=== PATIENT | female | born 1995 | race Caucasian/White ===

== ENCOUNTER 2017-03-24 16:27 | Emergency (ER) | payer MEDICAID ==
[2017-03-24 17:48] LABS: HCG UR QUAL NEGATIVE
--- NOTE | 2017-03-24 18:52 | XRAY Preliminary Report ---
Exam: XR Ribs w/PA Chest LT IMPRESSION: Normal chest and rib radiography. [facility] SITE ID: [id number]
--- NOTE | 2017-03-24 18:54 | XRAY Report ---
EXAM: LEFT RIB RADIOGRAPHY EXAM DATE: 03/24/2017 06:42 PM. CLINICAL HISTORY: LEFT RIB PAIN. COMPARISON: Chest dated 08/26/2014. TECHNIQUE: 1 view of the chest and 2 views of the ribs. FINDINGS: Bones: Normal. No fracture or bone lesion. Lungs: Clear. No effusion or pneumothorax. Mediastinum: Heart and mediastinal contours are unremarkable. Upper lobe vessels not distended. Other: None. IMPRESSION: Normal chest and rib radiography. [facility] Referring Provider Line: [phone] SITE ID: [id number]
--- NOTE | 2017-03-24 20:14 | ED Physician Documentation ---
History of Present Illness - Stated complaint Stated Complaint: HEAD/BACK PX - Chief complaint Chief Complaint: Back Pain - Additonal information Additional information: hx from pt 22 y/o f denies preg fell opff trampoline last night and landed flat on her back hitting her head no LOC severe [place] back and frontal all day with dizziness and NV, no neck pain left posterior rib pain Review of Systems Constitutional: denies: Fever, Chills Cardiac: reports: Chest pain / pressure (left ribs) Respiratory: denies: Dyspnea GI: denies: Abdominal Pain (near ribs) : denies: Now EGA Musculoskeletal: reports: Back pain (left ribs). denies: Neck pain Neurologic: reports: Headache, Head injury. 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 - Present Medications Home Medications: Ambulatory Orders Medication Instructions Recorded Confirmed Etonogestrel [Nexplanon] 68 mg 07/28/15 09/06/15 Ibuprofen [Motrin] 800 mg PO Q8H PRN #30 tablet 04/19/16 Lidocaine Patch 5% [Lidoderm Patch] 1 each TOP DAILY PRN #10 patch 03/24/17 Ondansetron Odt [Zofran] 4 mg TL Q6H PRN #10 tablet 03/24/17 - Allergies Allergies/Adverse Reactions: Allergies Allergy/AdvReac Type Severity Reaction Status Date / Time antinausea AdvReac Intermediate Hives Uncoded 03/24/17 16:34 - Social History Does the pt smoke?: Yes Smoking Status: Current every day smoker Does the pt drink ETOH?: Yes Does the pt have substance abuse?: No - Immunizations Immunizations are current?: Yes - POLST Patient has POLST: No PD ED PE NORMAL - Vitals Vital signs reviewed: Yes - General General: Alert and oriented X 3 - HEENT HEENT: Atraumatic, PERRL - Neck Neck: No bony TTP - Cardiac Cardiac: RRR - Respiratory Respiratory: No respiratory distress, Clear bilaterally - Abdomen Abdomen: Soft, Other (mild LUQ TTP s distension bruising rebound guarding) - Neuro Neuro: Alert and oriented X 3, No motor deficit, No sensory deficit Results - Vitals Vitals: Vital Signs - 24 hr 03/24/17 03/24/17 16:31 21:05 Temperature 36.7 C 36.9 C Heart Rate 86 70 Respiratory 16 16 Rate Blood Pressure 141/92 H 119/58 L O2 Saturation 99 100 Oxygen O2 Source Room air - Labs Labs: Laboratory Tests 03/24/17 17:35 Ur Specific [place] 1.015 Urine HCG, Qual NEGATIVE - Rads (name of study) ribs Radiology: See rad report (neg) CTH Radiology: See rad report (no ICH no skull fx, sinus inflammation) Departure - Departure Disposition: 01 Home, Self Care Clinical Impression: Concussion Qualifiers: Encounter type: initial encounter Loss of consciousness presence/duration: without LOC Qualified Code(s): S06.0X0A - Concussion without loss of consciousness, initial encounter Contusion of rib on left side Qualifiers: Encounter type: initial encounter Qualified Code(s): S20.212A - Contusion of left front wall of thorax, initial encounter Condition: Good Instructions: ED Contusion Chest Wall, ED Concussion Prescriptions: Lidocaine Patch 5% [Lidoderm Patch] 1 each TOP DAILY PRN #10 patch PRN Reason: Pain Ondansetron Odt [Zofran] 4 mg TL Q6H PRN #10 tablet PRN Reason: Nausea / Vomiting Comments: The xrays of your ribs and the CT scan of your head were both fine, no fractures and no bleeding on the brain Recommend lidocaine patches - apply one to your ribs every day for up to 12 hr a day, and motrin and tylenol for the pain And zofran for vomiting Avoid any contact sports or other activities where you might hit your head until you are feeling better and have no headaches or nausea any more Follow up with your OPMD if not better in a week Return if worse Forms: Activity restrictions
[2017-03-24] MEDS ORDERED: ONDANSETRON ODT 4 MG TABLET ONE (20:21)
[2017-03-24] MEDS ORDERED: IBUPROFEN 400 MG TABLET PO ONE ×2 (20:21→21:49)
[2017-03-24] MEDS ORDERED: ACETAMINOPHEN 325 MG TABLET PO ONE (20:21)
[2017-03-24] MEDS: ONDANSETRON ODT 4 MG TABLET TL STA (20:22)
[2017-03-24] MEDS: LIDOCAINE PATCH 5% TOP STA (20:22)
[2017-03-24] MEDS ORDERED: LIDOCAINE PATCH 5% TOP ONE (20:22)
[2017-03-24] MEDS: ACETAMINOPHEN 325 MG TABLET PO STA (20:22)
[2017-03-24] MEDS: IBUPROFEN 400 MG TABLET PO STA ×2 (20:22→21:47)
[2017-03-24 21:06] VITALS: BP 119/58
--- NOTE | 2017-03-24 21:18 | CT Preliminary Report ---
Exam: CT Head W/O IMPRESSION: 1. Moderate right maxillary mucosal thickening consistent with sinusitis versus mucosal hemorrhage. 2. No intracranial abnormality nor bleed. [facility] SITE ID: [id number]
--- NOTE | 2017-03-24 21:23 | CT Report ---
EXAM: CT HEAD EXAM DATE: 03/24/2017 08:39 PM. CLINICAL HISTORY: Patient fell off a trampoline 22 hours ago. Patient presents with dizziness, nosebl eed this morning, and vomiting. COMPARISON: None. TECHNIQUE: Multiaxial CT images were obtained from the foramen magnum to the vertex. IV contrast: Non e. Reformats: Coronal. In accordance with CT protocol optimization, one or more of the following dose reduction techniques w ere utilized for this exam: automated exposure control, adjustment of mA and/or KV based on patient s ize, or use of iterative reconstructive technique. FINDINGS: Parenchyma: No intraparenchymal hemorrhage. No evidence of mass, midline shift, or CT findings of inf arction. [place] differentiation is distinct. Extraaxial Spaces: Normal for age. No subdural or epidural collections identified. Ventricles: Normal in size and position. Sinuses: Moderate mucosal thickening right maxillary sinus. Opacification of several anterior ethmoid air cells bilaterally. Mild mucosal thickening right sphenoid sinus. Middle ears and mastoid air maile ls are clear. Bones: No evidence of fracture or calvarial defect. Other: None. IMPRESSION: 1. Moderate right maxillary mucosal thickening consistent with sinusitis versus mucosal hemorrhage. 2. No intracranial abnormality nor bleed. [facility] Referring Provider Line: [phone] SITE ID: [id number]
[2017-03-24] MEDS ORDERED: ONDANSETRON ODT 4 MG Prepack 2 TL ONE (21:57)
[2017-03-24] MEDS: ONDANSETRON ODT 4 MG Prepack 2 TL PRN (21:59)
== END 2017-03-24 21:59 | disposition home or self-care (01) ==
LOC: ED 16:27
DX: S06.0X0A Concussion without loss of consciousness, initial encounter (principal); S20.212A Contusion of left front wall of thorax, initial encounter; W17.89XA Other fall from one level to another, initial encounter; Y93.44 Activity, trampolining; F17.200 Nicotine dependence, unspecified, uncomplicated
CPT/HCPCS: 70450; 71101; 81025; 99283; A9270; Q0162

== ENCOUNTER 2017-11-10 18:24 | Emergency (ER) | payer MEDICAID ==
[2017-11-10 18:41] LABS: BILIRUBIN,URINE NEGATIVE (NEGATIVE); GLUCOSE, URINE (UA) NEGATIVE (NEGATIVE); KETONES,URINE (UA) NEGATIVE (NEGATIVE); LEUKOCYTE ESTERASE, URINE NEGATIVE (NEGATIVE); NITRITE,URINE NEGATIVE (NEGATIVE); OCCULT BLOOD,URINE NEGATIVE (NEGATIVE); PROTEIN,URINE NEGATIVE (NEGATIVE); UROBILINOGEN,URINE 0.2 (NORMAL) E.U./dL (NORMAL)
[2017-11-10 18:44] LABS: CLARITY,URINE CLEAR (CLEAR)
--- NOTE | 2017-11-10 20:18 | ED Physician Documentation ---
PD HPI ABD PAIN - Stated complaint Stated Complaint: LOW ABD/BACK PAIN - Chief complaint Chief Complaint: Abd Pain - History obtained from History obtained from: Patient - History of Present Illness Timing - onset: How many hours ago (3), Today Timing - duration: Hours Timing - details: Abrupt onset, Still present Quality: Cramping, Aching, Pain Location: Suprapubic, LLQ Radiation: Lower back Associated symptoms: Nausea. No: Fever, Vomiting, Diarrhea, Dysuria, Vaginal dc Similar symptoms before: Has not had sx before Recently seen: Not recently seen Review of Systems Constitutional: denies: Fever, Chills : reports: Irregular menses. denies: Dysuria, Frequency, Discharge, Missed period Musculoskeletal: reports: Back pain. 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 - Present Medications Home Medications: Ambulatory Orders Medication Instructions Recorded Confirmed Naproxen 375 mg PO BID #20 tablet 11/10/17 Oxycodone HCl/Acetaminophen 1 each PO Q6H PRN #10 tablet 11/10/17 [Percocet 5-325 mg Tablet] - Allergies Allergies/Adverse Reactions: Allergies Allergy/AdvReac Type Severity Reaction Status Date / Time antinausea AdvReac Intermediate Hives Uncoded 11/10/17 18:29 - Social History Does the pt smoke?: Yes Smoking Status: Current every day smoker Does the pt drink ETOH?: Yes Does the pt have substance abuse?: No - Immunizations Immunizations are current?: Yes - POLST Patient has POLST: No PD ED PE NORMAL - Vitals Vital signs reviewed: Yes - General General: Alert and oriented X 3, No acute distress, Well developed/nourished - HEENT HEENT: Moist mucous membranes, Pharynx benign - Neck Neck: Supple, no meningeal sign, No adenopathy - Cardiac Cardiac: RRR, No murmur - Respiratory Respiratory: Clear bilaterally - Abdomen Abdomen: Normal bowel sounds, Soft, Non distended, No organomegaly, Other ( tender suprapubic and LLQ area without guarding nor percussion tenderness. ) - Back Back: No CVA TTP - Derm Derm: Normal color, Warm and dry - Extremities Extremities: No tenderness to palpate, Normal ROM s pain - Neuro Neuro: Alert and oriented X 3, No motor deficit, Normal speech Results - Vitals Vitals: Oxygen O2 Source Room air - Labs Labs: Laboratory Tests 11/10/17 11/10/17 11/10/17 18:32 18:32 20:43 WBC 7.6 RBC 4.17 L Hgb 13.0 Hct 38.8 MCV 93.1 MCH 31.3 H MCHC 33.6 RDW 12.8 Plt Count 236 MPV 8.5 Neut # 4.9 Lymph # 2.0 [place] # 0.5 Eos # 0.1 Baso # 0.1 Absolute Nucleated RBC 0.00 Nucleated RBC % 0.0 Sodium Potassium Chloride Carbon Dioxide Anion Gap BUN Creatinine Estimated GFR (MDRD) Glucose Calcium Total Bilirubin AST ALT Alkaline Phosphatase Total Protein Albumin Globulin Albumin/Globulin Ratio Lipase Urine Color YELLOW Urine Clarity CLEAR Urine pH 6.0 Ur Specific [place] 1.020 1.020 Urine Protein NEGATIVE Urine Glucose (UA) NEGATIVE Urine Ketones NEGATIVE Urine Occult Blood NEGATIVE Urine Nitrite NEGATIVE Urine Bilirubin NEGATIVE Urine Urobilinogen 0.2 (NORMAL) Ur Leukocyte Esterase NEGATIVE Ur Microscopic Review NOT INDICATED Urine Culture Comments NOT INDICATED Urine HCG, Qual NEGATIVE 11/10/17 20:43 WBC RBC Hgb Hct MCV MCH MCHC RDW Plt Count MPV Neut # Lymph # [place] # Eos # Baso # Absolute Nucleated RBC Nucleated RBC % Sodium 137 Potassium 3.7 Chloride 104 Carbon Dioxide 23 Anion Gap 10.0 BUN 7 Creatinine 0.5 Estimated GFR (MDRD) 152 Glucose 95 Calcium 9.3 Total Bilirubin 0.6 AST 16 ALT 15 Alkaline Phosphatase 56 Total Protein 7.3 Albumin 4.6 Globulin 2.7 Albumin/Globulin Ratio 1.7 Lipase 14 L Urine Color Urine Clarity Urine pH Ur Specific [place] Urine Protein Urine Glucose (UA) Urine Ketones Urine Occult Blood Urine Nitrite Urine Bilirubin Urine Urobilinogen Ur Leukocyte Esterase Ur Microscopic Review Urine Culture Comments Urine HCG, Qual - Rads (name of study) Pelvic U/S Radiology: Prelim report reviewed (normal.) PD MEDICAL DECISION MAKING - ED course Complexity details: reviewed results, considered differential (not tender RLQ, with more pelvic and back pain. Denies STD symptoms. U/S normal. UA negative. Presume uterine cramping. No blood in urine. ), d/w patient Departure - Departure Disposition: 01 Home, Self Care Clinical Impression: Abdominal pain Qualifiers: Abdominal location: lower abdomen, unspecified Qualified Code(s): R10.30 - Lower abdominal pain, unspecified Condition: Stable Record reviewed to determine appropriate education?: Yes Instructions: ED Abdominal Pain Unkn Cause Prescriptions: Naproxen 375 mg PO BID #20 tablet Oxycodone HCl/Acetaminophen [Percocet 5-325 mg Tablet] 1 each PO Q6H PRN #10 tablet PRN Reason: Pain Comments: Your test here which included a urine test blood tests and ultrasound do not show an obvious cause for the pain. There may been a cyst that ruptured and would not have a residual finding. Acute events of intestinal pain. At this point we would give it a day or so to see if it continues to improve and go away. Use some naproxen or ibuprofen twice daily for the next several days. Add Tylenol or oxycodone if needed for pain. Follow-up with your primary care or back here if he has worsened pain again or any associated vomiting, fever, bloody stool, other symptoms that would suggest a different diagnosis. Discharge Date/Time: 11/10/17 23:02
[2017-11-10] MEDS ORDERED: KETOROLAC 60 MG/2 ML VIAL IVP STA (20:36)
[2017-11-10] MEDS ORDERED: ONDANSETRON 4 MG/2 ML VIAL IVP STA (20:36)
[2017-11-10] MEDS ORDERED: SODIUM CHLORIDE 0.9% 1,000 ML IV ONE (20:36)
[2017-11-10] MEDS ORDERED: HYDROmorphone 1 MG/ML CARPUJECT IVP STA ×2 (20:36→22:23)
[2017-11-10 20:48] LABS: BASOPHILS # (AUTO) 0.1 10^3/uL (0.0-0.1); BASOPHILS % (AUTO) 0.9 %; EOSINOPHILS # (AUTO) 0.1 10^3/uL (0.0-0.7); EOSINOPHILS % (AUTO) 1.4 %; LYMPHOCYTES % (AUTO) 26.5 %; MEAN CORPUSCULAR HEMOGLOBIN 31.3 pg (27.0-31.0); MEAN CORPUSCULAR HGB CONC 33.6 g/dL (32.0-36.0); MEAN CORPUSCULAR VOLUME 93.1 fL (81.0-99.0); MEAN PLATELET VOLUME 8.5 fL (7.9-10.8); MONOCYTES # (AUTO) 0.5 10^3/uL (0.0-1.0); MONOCYTES % (AUTO) 7.2 %; NEUTROPHILS # (AUTO) 4.9 10^3/uL (1.5-6.6); PLT - PLATELET COUNT 236 10^3/uL (130-450); RED BLOOD COUNT 4.17 10^6/uL (4.20-5.40); RED CELL DISTRIBUTION WIDTH 12.8 % (12.0-15.0); WHITE BLOOD COUNT 7.6 x10^3/uL (4.8-10.8)
[2017-11-10 20:59] LABS: ALBUMIN 4.6 g/dL (3.2-5.5); ALBUMIN/GLOBULIN RATIO 1.7 (1.0-2.2); BILIRUBIN,TOTAL 0.6 mg/dL (0.2-1.0); CALCIUM 9.3 mg/dL (8.5-10.3); CREATININE 0.5 mg/dL (0.4-1.0); TOTAL PROTEIN 7.3 g/dL (6.7-8.2)
[2017-11-10 21:39] LABS: HCG UR QUAL NEGATIVE
--- NOTE | 2017-11-10 22:02 | Ultrasound Preliminary Report ---
Exam: US PELVIC W/TRANSVAG+DOPPLER LTD IMPRESSION: Normal pelvic ultrasound. [facility] SITE ID: [id number]
[2017-11-10] MEDS ORDERED: oxyCODONE/ACET 5/325 Prepack 4 PO STA (22:23)
[2017-11-10 22:58] VITALS: BP 121/80
--- NOTE | 2017-11-10 23:20 | Ultrasound Report ---
EXAM: PELVIC ULTRASOUND EXAM DATE: 11/10/2017 09:43 PM. CLINICAL HISTORY: Lower abdominal pain for few days. COMPARISON: 06/06/2013. TECHNIQUE: Realtime transabdominal pelvic scan performed to identify the uterus and adnexa and as an overview of other pelvic structures, followed by transvaginal scan to provide greater detail of the u terus and adnexa, with static image documentation. FINDINGS: Uterus: 8.0 x 4.6 x 5.9 cm, volume 112.2 cc. Retroverted and retroflexed position. Normal overall siz e and echotexture. Masses: None. Endometrium: 4 mm. Normal. Cervix: Fluid noted in the cervix. Right Ovary: 3.7 x 2.2 x 2.6 cm, volume 10.9 cc. Normal echotexture and blood flow. Left Ovary: 2.2 x 1.5 x 2.7 cm, volume 4.8 cc. Normal echotexture and blood flow. Free Fluid: Small amount of pelvic fluid. Other: None. IMPRESSION: Normal pelvic ultrasound. [facility] Referring Provider Line: [phone] SITE ID: [id number]
== END 2017-11-10 23:02 | disposition home or self-care (01) ==
LOC: ED 18:24
DX: R10.30 Lower abdominal pain, unspecified (principal); F17.200 Nicotine dependence, unspecified, uncomplicated
CPT/HCPCS: 36415; 76830; 76856; 80053; 81003; 81025; 83690; 85025; 93976; 96361; 96374; 96375; 96376; 99283; 99284; J1170; 81001; 87086

== ENCOUNTER 2018-02-12 12:52 | Emergency (ER) | payer MEDICAID ==
[2018-02-12 13:31] VITALS: BP 133/93
--- NOTE | 2018-02-12 14:41 | ED Physician Documentation ---
PD HPI LOWER EXT INJURY - Stated complaint Stated Complaint: GLF - Chief complaint Chief Complaint: Ext Problem - History obtained from History obtained from: Patient - History of Present Illness PD HPI LOW EXT INJURY LOCATION: Left, Knee (She was packing to camping, she tripped on her suitcase and her knee twisted and complains of anteromedial left knee pain. She is able to walk but has to keep the knee straight. 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 - Present Medications Home Medications: Ambulatory Orders Medication Instructions Recorded Confirmed HYDROcod/ACETAM 5/325 [[place] 5/325] 1 - 2 ea PO Q6H PRN #10 tablet 02/12/18 - Allergies Allergies/Adverse Reactions: Allergies Allergy/AdvReac Type Severity Reaction Status Date / Time antinausea AdvReac Intermediate Hives Uncoded 11/10/17 18:29 - Social History Does the pt smoke?: Yes Smoking Status: Current every day smoker Does the pt drink ETOH?: Yes ETOH Use: Wine, Beer, Liquor Does the pt have substance abuse?: Yes Substance Use and Type: Marijuana - Immunizations Immunizations are current?: Yes - POLST Patient has POLST: No PD ED PE NORMAL - Vitals Vital signs reviewed: Yes - General General: Alert and oriented X 3, No acute distress - Extremities Extremities: Other (Left knee is without effusion, mild anteromedial knee tenderness, especially above the joint line, ACL, PCL, LCL, MCL testing is normal and intact and negative grind testing.) - Neuro Neuro: Alert and oriented X 3, Normal speech - Psych Psych: Normal mood, Normal affect Results - Vitals Vitals: Vital Signs - 24 hr 02/12/18 13:28 Temperature 36.5 C Heart Rate 100 Respiratory 18 Rate Blood Pressure 133/93 H O2 Saturation 100 Oxygen O2 Source Room air - Rads (name of study) 4v R knee Radiology: EMP read contemporaneously (negative) PD MEDICAL DECISION MAKING - Sepsis Event Vital Signs: Vital Signs - 24 hr 02/12/18 13:28 Temperature 36.5 C Heart Rate 100 Respiratory 18 Rate Blood Pressure 133/93 H O2 Saturation 100 Oxygen O2 Source Room air Departure - Departure Disposition: 01 Home, Self Care Clinical Impression: Left knee sprain Qualifiers: Encounter type: initial encounter Involved ligament of knee: medial collateral ligament Qualified Code(s): S83.412A - Sprain of medial collateral ligament of left knee, initial encounter Condition: Good Record reviewed to determine appropriate education?: Yes Instructions: ED Meniscal Injury Knee Poss Follow-Up: [facility] [Provider Group] (1 week if not better) Prescriptions: HYDROcod/ACETAM 5/325 [[place] 5/325] 1 - 2 ea PO Q6H PRN #10 tablet PRN Reason: Pain Comments: Ibuprofen,'s 400 mg every 6 hours as needed for pain. Keep the splint on for comfort but she can take it off around the house or just for showering etc. and you do not need to wear it while sleeping. If not better in a week follow-up with the orthopedic surgeons for recheck, the numbers on this form. Your blood pressure was elevated today on check into the emergency department. This does not mean that you have hypertension, it is a common phenomenon to come to the emergency department and have elevated blood pressure. I recommend that you see your primary care physician within the week to have it rechecked when you are feeling better.
--- NOTE | 2018-02-12 14:42 | XRAY Report ---
Procedure Date: 02/12/2018 Accession Number: [id number] / [id number] Procedure: XR - Knee 4 View LT CPT Code: FULL RESULT: EXAM: LEFT KNEE RADIOGRAPHY EXAM DATE: 02/12/2018 02:32 PM. CLINICAL HISTORY: Fall. COMPARISON: None. TECHNIQUE: 4 views. FINDINGS: Bones: Normal. No fractures or bone lesions. Joints: Normal. No effusion. No subluxations. Soft Tissues: Normal. No soft tissue swelling. IMPRESSION: Negative knee radiography. [facility]
== END 2018-02-12 15:03 | disposition home or self-care (01) ==
LOC: ED 12:52
DX: S83.412A Sprain of medial collateral ligament of left knee, initial encounter (principal); W01.0XXA Fall on same level from slipping, tripping and stumbling without subsequent striking against object, initial encounter; Y93.89 Activity, other specified; F17.200 Nicotine dependence, unspecified, uncomplicated
CPT/HCPCS: 99283

== ENCOUNTER 2018-04-17 14:39 | Emergency (ER) | payer MEDICAID ==
[2018-04-17 14:58] LABS: BILIRUBIN,URINE NEGATIVE (NEGATIVE); GLUCOSE, URINE (UA) NEGATIVE (NEGATIVE); KETONES,URINE (UA) 15 mg/dL (NEGATIVE); LEUKOCYTE ESTERASE, URINE SMALL (NEGATIVE); NITRITE,URINE NEGATIVE (NEGATIVE); OCCULT BLOOD,URINE MODERATE (NEGATIVE); PROTEIN,URINE 100 mg/dL (NEGATIVE); UROBILINOGEN,URINE 2 E.U./dL (NORMAL)
--- NOTE | 2018-04-17 15:02 | ED Physician Documentation ---
PD HPI FEMALE - Stated complaint Stated Complaint: BACK PX/FEM - Chief complaint Chief Complaint: General - History obtained from History obtained from: Patient, Family - History of Present Illness Timing - onset: How many days ago (4) Timing - duration: Days (4) Timing - details: Gradual onset, Still present Associated symptoms: Back pain, Dysuria, Urinary frequency Similar symptoms before: Diagnosis (pyelonephritis) Recently seen: Not recently seen - Additional information Additional information: 23-year-old female who has had prior urinary tract infection with pyelonephritis has developed symptoms of urinary urgency frequency and dysuria about 4 days ago. This morning she awoke with back pain. She recalls his back pain is similar to what she had when she had pyelonephritis 2 years ago. She has some mild nausea she has not had any vomiting she has not had a fever. Review of Systems Constitutional: reports: Fatigue. denies: Fever, Chills Eyes: denies: Decreased vision Ears: denies: Ear pain Nose: denies: Congestion Throat: denies: Sore throat Cardiac: denies: Chest pain / pressure Respiratory: denies: Dyspnea, Cough GI: denies: Abdominal Pain, Nausea, Vomiting, Constipation, Diarrhea : reports: Dysuria, Frequency Skin: denies: Rash Musculoskeletal: reports: Back pain. 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 - Present Medications Home Medications: Ambulatory Orders Medication Instructions Recorded Confirmed HYDROcod/ACETAM 5/325 [[place] 5/325] 1 - 2 ea PO Q6H PRN #15 tablet 04/17/18 Sulfamethoxazole/Trimethoprim 1 each PO BID #14 tablet 04/17/18 [Sulfamethoxazole-Tmp Ds Tablet] - Allergies Allergies/Adverse Reactions: Allergies Allergy/AdvReac Type Severity Reaction Status Date / Time antinausea AdvReac Intermediate Hives Uncoded 04/17/18 15:10 - Social History Does the pt smoke?: Yes Smoking Status: Current every day smoker Does the pt drink ETOH?: Yes Does the pt have substance abuse?: Yes - Immunizations Immunizations are current?: Yes - POLST Patient has POLST: No PD ED PE NORMAL - Vitals Vital signs reviewed: Yes (tachy and hypertensive ) - General General: Alert and oriented X 3, No acute distress, Well developed/nourished - HEENT HEENT: Atraumatic, PERRL, EOMI - Neck Neck: Supple, no meningeal sign - Cardiac Cardiac: RRR, No murmur - Respiratory Respiratory: No respiratory distress, Clear bilaterally - Abdomen Abdomen: Soft, Non tender - Back Back: No spinal TTP, Other (There is CVA tenderness bilaterallly ) - Derm Derm: Normal color, Warm and dry, No rash - Extremities Extremities: No deformity, No edema - Neuro Neuro: Alert and oriented X 3, chief science officer 2-12 intact, No motor deficit, No sensory deficit, Normal speech Eye Opening: Spontaneous Motor: Obeys Commands Verbal: Oriented GCS Score: 15 - Psych Psych: Normal mood, Normal affect Results - Vitals Vitals: Vital Signs - 24 hr 04/17/18 14:45 Temperature 37.2 C Heart Rate 103 H Respiratory 16 Rate Blood Pressure 142/90 H O2 Saturation 99 Oxygen O2 Source Room air - Labs Labs: Laboratory Tests 04/17/18 14:50 Urine Color YELLOW Urine Clarity CLOUDY Urine pH 7.0 Ur Specific [place] 1.020 Urine Protein 100 H Urine Glucose (UA) NEGATIVE Urine Ketones 15 H Urine Occult Blood MODERATE H Urine Nitrite NEGATIVE Urine Bilirubin NEGATIVE Urine Urobilinogen 2 H Ur Leukocyte Esterase SMALL H Urine RBC 11-25 H Urine WBC 11-25 H Ur Squamous Epith Cells RARE Squamous Urine Bacteria None Seen Ur Microscopic Review INDICATED Urine Culture Comments INDICATED Urine HCG, Qual NEGATIVE PD MEDICAL DECISION MAKING - ED course Complexity details: reviewed old records, reviewed results, re-evaluated patient , considered differential, d/w patient, d/w family ED course: 23-year-old female with urinary tract symptoms has developed pain in her back again and her previous infection grew an E. coli that was sensitive. She had no specific issues with her prior treatment and we will repeat this. She is given Rocephin IM here in the emergency department we will give her a note for work for [address] her on . - Sepsis Event Vital Signs: Vital Signs - 24 hr 04/17/18 14:45 Temperature 37.2 C Heart Rate 103 H Respiratory 16 Rate Blood Pressure 142/90 H O2 Saturation 99 Oxygen O2 Source Room air Departure - Departure Disposition: 01 Home, Self Care Clinical Impression: Pyelonephritis Condition: Stable Instructions: ED Kidney Infec Female Follow-Up: [facility] [Provider Group] Prescriptions: HYDROcod/ACETAM 5/325 [[place] 5/325] 1 - 2 ea PO Q6H PRN #15 tablet PRN Reason: Pain Sulfamethoxazole/Trimethoprim [Sulfamethoxazole-Tmp Ds Tablet] 1 each PO BID # 14 tablet Forms: Activity restrictions
[2018-04-17 15:07] LABS: BACTERIA,URINE None Seen /HPF (None Seen); CLARITY,URINE CLOUDY (CLEAR); HCG UR QUAL NEGATIVE; SQUAMOUS EPITHELIAL CELL,UR RARE Squamous (<= Few)
[2018-04-17] MEDS ORDERED: cefTRIAXone 1 GM VIAL IM STA (15:10)
[2018-04-17] MEDS ORDERED: LIDOCAINE 1% 2 ML VIAL SUBQ ONE (15:10)
[2018-04-17 15:34] VITALS: BP 132/73
== END 2018-04-17 15:34 | disposition home or self-care (01) ==
LOC: ED 14:39
DX: F17.200 Nicotine dependence, unspecified, uncomplicated (principal); N12 Tubulo-interstitial nephritis, not specified as acute or chronic
CPT/HCPCS: 81001; 81003; 81025; 87086; 87181; 96372; 99283

== ENCOUNTER 2019-02-13 12:31 | Emergency (ER) | payer MEDICAID ==
[2019-02-13 12:37] VITALS: BP 134/92
[2019-02-13 12:47] LABS: BILIRUBIN,URINE NEGATIVE (NEGATIVE); GLUCOSE, URINE (UA) NEGATIVE (NEGATIVE); KETONES,URINE (UA) TRACE mg/dL (NEGATIVE); LEUKOCYTE ESTERASE, URINE MODERATE (NEGATIVE); NITRITE,URINE NEGATIVE (NEGATIVE); OCCULT BLOOD,URINE MODERATE (NEGATIVE); PH,URINE 6.5 PH (5.0-7.5); PROTEIN,URINE 30 mg/dL (NEGATIVE); UROBILINOGEN,URINE 1 (NORMAL) E.U./dL (NORMAL)
[2019-02-13 12:50] LABS: CLARITY,URINE CLOUDY (CLEAR); HCG UR QUAL NEGATIVE
[2019-02-13 12:58] LABS: BACTERIA,URINE Few /HPF (None Seen); SQUAMOUS EPITHELIAL CELL,UR FEW Squamous (<= Few)
[2019-02-13 12:59] LABS: MUCUS,URINE Few Strands
--- NOTE | 2019-02-13 13:04 | ED Physician Documentation ---
PD HPI FEMALE - Stated complaint Stated Complaint: FEMALE - Chief complaint Chief Complaint: UTI - History obtained from History obtained from: Patient - History of Present Illness Timing - onset: Yesterday (Frequency and dysuria today with mild L back pain. No fevers.) Review of Systems Constitutional: denies: Fever, Chills GI: reports: Abdominal Pain. 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 - Present Medications Home Medications: Ambulatory Orders Medication Instructions Recorded Confirmed Hydrocodone/Acetaminophen 1 - 2 each PO Q6H PRN #7 tablet 02/13/19 [Hydrocodon-Acetaminophen 5-325] Ibuprofen 600 mg PO ONCE 02/13/19 02/13/19 Sulfamethoxazole/Trimethoprim 1 each PO BID #14 tablet 02/13/19 [Sulfamethoxazole-Tmp Ds Tablet] - Allergies Allergies/Adverse Reactions: Allergies Allergy/AdvReac Type Severity Reaction Status Date / Time antinausea AdvReac Intermediate Hives Uncoded 02/13/19 12:37 - Social History Does the pt smoke?: Yes Smoking Status: Current every day smoker Does the pt drink ETOH?: Yes Does the pt have substance abuse?: Yes - Immunizations Immunizations are current?: Yes - POLST Patient has POLST: No PD ED PE NORMAL - Vitals Vital signs reviewed: Yes - General General: Alert and oriented X 3, No acute distress - Abdomen Abdomen: Soft, Other (Mild LLQ and LCVAT ) - Neuro Neuro: Alert and oriented X 3, Normal speech - Psych Psych: Normal mood, Normal affect Results - Vitals Vitals: Vital Signs - 24 hr 02/13/19 12:35 Temperature 36.8 C Heart Rate 108 H Respiratory 18 Rate Blood Pressure 134/92 H O2 Saturation 100 Oxygen O2 Source Room air - Labs Labs: Laboratory Tests 02/13/19 12:39 Urine Color YELLOW Urine Clarity CLOUDY Urine pH 6.5 Ur Specific [place] 1.020 Urine Protein 30 H Urine Glucose (UA) NEGATIVE Urine Ketones TRACE Urine Occult Blood MODERATE H Urine Nitrite NEGATIVE Urine Bilirubin NEGATIVE Urine Urobilinogen 1 (NORMAL) Ur Leukocyte Esterase MODERATE H Urine RBC 6-10 H Urine WBC >25 H Ur Squamous Epith Cells FEW Squamous Urine Bacteria Few Urine Mucus Few Strands Ur Microscopic Review INDICATED Urine Culture Comments INDICATED Urine HCG, Qual NEGATIVE Departure - Departure Disposition: Home, Self Care Clinical Impression: Pyelonephritis Condition: Good Record reviewed to determine appropriate education?: Yes Health Concerns: uti/pyelonephritis Plan of Treatment: antibiotics, urine culture Care Goals: rid infection Assessment: as above Instructions: Pyelonephritis Dc Prescriptions: Hydrocodone/Acetaminophen [Hydrocodon-Acetaminophen 5-325] 1 - 2 each PO Q6H PRN #7 tablet PRN Reason: pain Sulfamethoxazole/Trimethoprim [Sulfamethoxazole-Tmp Ds Tablet] 1 each PO BID #14 tablet Comments: We will culture your urine, the results should be done in 48-72 hours. If an antibiotic change is necessary we will call you. Return if worse in the meantime, especially if you develop increasing flank pain, fevers, or cannot keep down the medication.
[2019-02-13] MEDS ORDERED: SULFAMETH/TRIMETH DS 800/160 MG TABLET PO STA (13:06)
== END 2019-02-13 13:14 | disposition home or self-care (01) ==
LOC: ED 12:31
DX: N12 Tubulo-interstitial nephritis, not specified as acute or chronic (principal); F17.200 Nicotine dependence, unspecified, uncomplicated
CPT/HCPCS: 81001; 81025; 87086; 99283; A9270; 81003

== ENCOUNTER 2019-08-28 00:48 | Emergency (ER) | payer MEDICAID ==
--- NOTE | 2019-08-28 01:36 | ED Physician Documentation ---
PD HPI LOWER EXT INJURY - Stated complaint Stated Complaint: GLF - LT KNEE PAIN - Chief complaint Chief Complaint: Trauma Ext - History obtained from History obtained from: Patient - History of Present Illness PD HPI LOW EXT INJURY LOCATION: Left Type of injury: Twist, Blunt / blow Where injury occurred: Home Timing - onset: Enter time (22:00) Timing - details: Abrupt onset Pain level max: 5 Pain level now: 2 Improved by: Rest Worsened by: Moving, Palpating Associated symptoms: Swelling. No: Weakness, Numbness, Tingling, Discolored Recently seen: Not recently seen - Additional information Additional information: At approximately 10 PM tonight, patient was roughhousing with a friend, and patients left knee twisted and then patient fell to the floor, and the left knee struck the ground. Patient had sudden onset of left knee pain. She can bare minimal weight on the left lower extremity. 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 - Present Medications Home Medications: Ambulatory Orders Medication Instructions Recorded Confirmed Hydrocodone/Acetaminophen 1 - 2 each PO Q6H PRN #7 tablet 02/13/19 [Hydrocodon-Acetaminophen 5-325] Ibuprofen 600 mg PO ONCE 02/13/19 02/13/19 Sulfamethoxazole/Trimethoprim 1 each PO BID #14 tablet 02/13/19 [Sulfamethoxazole-Tmp Ds Tablet] HYDROcod/ACETAM 5/325 [[place] 5/325] 1 - 2 ea PO Q6H PRN #20 tablet 08/28/19 Ibuprofen [Ibu] 600 mg PO Q6HR PRN #20 tablet 08/28/19 - Allergies Allergies/Adverse Reactions: Allergies Allergy/AdvReac Type Severity Reaction Status Date / Time antinausea AdvReac Intermediate Hives Uncoded 08/28/19 00:55 - Social History Does the pt smoke?: Yes Smoking Status: Current every day smoker Does the pt drink ETOH?: Yes Does the pt have substance abuse?: Yes - Immunizations Immunizations are current?: Yes - POLST Patient has POLST: No PD ED PE NORMAL - Vitals Vital signs reviewed: Yes - General General: Alert and oriented X 3, No acute distress, Well developed/nourished - Derm Derm: Normal color, Warm and dry - Extremities Extremities: No deformity - Neuro Neuro: No motor deficit, No sensory deficit PD ED PE EXPANDED - Extremities Extremities: Tenderness, Limited ROM, Swelling, Left knee Results - Vitals Vitals: Oxygen O2 Source Room air - Rads (name of study) left knee xrays Radiology: Prelim report reviewed, See rad report PD MEDICAL DECISION MAKING - ED course Complexity details: reviewed results, re-evaluated patient, considered differential, d/w patient Departure - Departure Disposition: 01 Home, Self Care Clinical Impression: Patella fracture Qualifiers: Encounter type: initial encounter Fracture type: closed Fracture morphology: unspecified fracture morphology Fracture alignment: nondisplaced Laterality: left Qualified Code(s): S82.002A - Unspecified fracture of left patella, initial encounter for closed fracture Condition: Good Instructions: ED Crutch Walking, ED Immobilizer Knee, ED Fx Patella Follow-Up: Lucas Alexis MD [Provider Admit Priv/Credential] - Within 1 week Prescriptions: Ibuprofen [Ibu] 600 mg PO Q6HR PRN #20 tablet PRN Reason: Pain HYDROcod/ACETAM 5/325 [[place] 5/325] 1 - 2 ea PO Q6H PRN #20 tablet PRN Reason: Pain Forms: Activity restrictions Discharge Date/Time: 08/28/19 02:44
--- NOTE | 2019-08-28 01:51 | XRAY Report ---
Reason: GLF/L knee injury Procedure Date: 08/28/2019 Accession Number: [id number] / [id number] Procedure: XR - Knee 3 View LT CPT Code: Final Report FULL RESULT: EXAM: LEFT KNEE RADIOGRAPHY EXAM DATE: 08/28/2019 01:44 AM. CLINICAL HISTORY: GLF/L knee injury. COMPARISON: KNEE 4 VIEW LT 02/12/2018 2:18 PM. TECHNIQUE: 3 views. FINDINGS: Bones: Small fracture at the superior medial aspect of the patella. Joints: No dislocation seen. Joint spaces appear preserved. Minimal if any joint effusion. Soft Tissues: Soft tissue swelling. IMPRESSION: 1. Small fracture at the superior medial aspect of the patella. RADIA
[2019-08-28] MEDS ORDERED: IBUPROFEN 600 MG TABLET PO STA (02:30)
[2019-08-28 02:44] VITALS: BP 144/98
== END 2019-08-28 02:44 | disposition home or self-care (01) ==
LOC: ED 00:48
DX: S82.002A Unspecified fracture of left patella, initial encounter for closed fracture (principal); W18.39XA Other fall on same level, initial encounter; Y93.83 Activity, rough housing and horseplay; Y92.009 Unspecified place in unspecified non-institutional (private) residence as the place of occurrence of the external cause; F17.200 Nicotine dependence, unspecified, uncomplicated
CPT/HCPCS: 73562; 99283; A9270

== ENCOUNTER 2019-11-01 07:00 | Outpatient (CLI) | payer MEDICAID | END 2019-11-01 23:59 | disposition home or self-care (01) | LOC: LAB.R 07:00 | PROVIDERS: ATTEND Nurse Practitioner Family | DX: R30.0 Dysuria (principal) | CPT/HCPCS: 87086 ==

== ENCOUNTER 2020-02-04 07:53 | Emergency (ER) | payer MEDICAID ==
[2020-02-04 08:13] VITALS: BP 130/97
[2020-02-04] MEDS ORDERED: HYDROcod/ACETAM 5/325 MG TABLET PO STA (08:16)
--- NOTE | 2020-02-04 08:17 | ED Physician Documentation ---
PD HPI LOWER EXT INJURY - Stated complaint Stated Complaint: LEFT KNEE PAIN - Chief complaint Chief Complaint: Ext Problem - History obtained from History obtained from: Patient - History of Present Illness PD HPI LOW EXT INJURY LOCATION: Left (Before months ago she had a little chip fracture of her left patella. She was wearing a brace and was in physical therapy. 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 - Present Medications Home Medications: Ambulatory Orders Medication Instructions Recorded Confirmed Hydrocodone/Acetaminophen 1 - 2 each PO Q6H PRN #7 tablet 02/13/19 [Hydrocodon-Acetaminophen 5-325] Ibuprofen 600 mg PO ONCE 02/13/19 02/13/19 Sulfamethoxazole/Trimethoprim 1 each PO BID #14 tablet 02/13/19 [Sulfamethoxazole-Tmp Ds Tablet] HYDROcod/ACETAM 5/325 [[place] 5/325] 1 - 2 ea PO Q6H PRN #20 tablet 08/28/19 Ibuprofen [Ibu] 600 mg PO Q6HR PRN #20 tablet 08/28/19 Hydrocodone/Acetaminophen 1 - 2 each PO Q6H PRN #14 tablet 02/04/20 [Hydrocodon-Acetaminophen 5-325] - Allergies Allergies/Adverse Reactions: Allergies Allergy/AdvReac Type Severity Reaction Status Date / Time antinausea AdvReac Intermediate Hives Uncoded 02/04/20 08:13 - Social History Does the pt smoke?: Yes Smoking Status: Current every day smoker Does the pt drink ETOH?: Yes Does the pt have substance abuse?: Yes - Immunizations Immunizations are current?: Yes - POLST Patient has POLST: No PD ED PE NORMAL - Vitals Vital signs reviewed: Yes - General General: Alert and oriented X 3, No acute distress - Extremities Extremities: Other (Left knee is without effusion. There is very mild focal tenderness to the superomedial patella. No deformity. Passive range of motion is painless. Ligamentous testing is normal.) - Neuro Neuro: Alert and oriented X 3, Normal speech Results - Vitals Vitals: Vital Signs - 24 hr 02/04/20 08:09 Temperature 36.4 C L Heart Rate 106 H Respiratory 14 Rate Blood Pressure 130/97 H O2 Saturation 11 L Oxygen O2 Source Room air PD MEDICAL DECISION MAKING - ED course ED course: 24-year-old woman with recurrence of left knee pain. No new trauma to indicate the need for repeat imaging. She mostly wanted some pain medication and a work note. Departure - Departure Disposition: 01 Home, Self Care Clinical Impression: Left knee sprain Qualifiers: Encounter type: initial encounter Involved ligament of knee: unspecified ligament Qualified Code(s): S83.92XA - Sprain of unspecified site of left knee, initial encounter Condition: Good Record reviewed to determine appropriate education?: Yes Instructions: ED Knee Pain UKO Prescriptions: Hydrocodone/Acetaminophen [Hydrocodon-Acetaminophen 5-325] 1 - 2 each PO Q6H PRN #14 tablet PRN Reason: pain Comments: As discussed, I think it is reasonable to go back into the splints that you already have for a couple of weeks. Return for new or worsening symptoms. Seems reasonable to restart physical therapy. Do not drink or drive while taking the prescription pain medication. Forms: Activity restrictions
== END 2020-02-04 08:22 | disposition home or self-care (01) ==
LOC: ED 07:53
DX: S83.92XA Sprain of unspecified site of left knee, initial encounter (principal); X58.XXXA Exposure to other specified factors, initial encounter; F17.200 Nicotine dependence, unspecified, uncomplicated
CPT/HCPCS: 99282; 99283; A9270

== ENCOUNTER 2020-03-30 14:00 | Outpatient (CLI) | payer MEDICAID, OTHER ==
[2020-03-30 16:42] LABS: BILIRUBIN,URINE NEGATIVE (NEGATIVE); GLUCOSE, URINE (UA) NEGATIVE (NEGATIVE); KETONES,URINE (UA) NEGATIVE (NEGATIVE); LEUKOCYTE ESTERASE, URINE NEGATIVE (NEGATIVE); NITRITE,URINE NEGATIVE (NEGATIVE); OCCULT BLOOD,URINE NEGATIVE (NEGATIVE); PROTEIN,URINE NEGATIVE (NEGATIVE); UROBILINOGEN,URINE 0.2 (NORMAL) E.U./dL (NORMAL)
[2020-03-30 16:46] LABS: CLARITY,URINE CLEAR (CLEAR)
[2020-03-30 21:31] LABS: TRICHOMONAS VAGINALIS DNA NEGATIVE (NEGATIVE)
== END 2020-03-30 23:59 | disposition home or self-care (01) ==
LOC: LAB.R 14:00
PROVIDERS: ATTEND Registered Nurse
DX: N39.0 Urinary tract infection, site not specified (principal)
CPT/HCPCS: 81001; 81003; 87086; 87491; 87591; 87661

== ENCOUNTER 2020-04-03 13:45 | Outpatient (CLI) | payer OTHER | END 2020-04-03 13:46 | disposition home or self-care (01) | LOC: COV 13:45 | PROVIDERS: ATTEND Registered Nurse | DX: Z20.828 Contact with and (suspected) exposure to other viral communicable diseases (principal) ==

== ENCOUNTER 2020-04-21 21:22 | Emergency (ER) | payer MEDICAID, OTHER ==
[2020-04-21 21:34] VITALS: BP 132/94
[2020-04-21] MEDS ORDERED: NEOMYCIN/POLYMYX/HC OTIC DROPS LEFTEAR STA (22:12)
--- NOTE | 2020-04-21 22:15 | ED Physician Documentation ---
PD HPI HEENT - Stated complaint Stated Complaint: EAR PX - Chief complaint Chief Complaint: Heent - History obtained from History obtained from: Patient, Family - History of Present Illness Timing - onset: How many days ago (4) Timing - duration: Days (4) Timing - details: Gradual onset, Still present Location: Left ear Improves: Nothing Worsens: Other (pressure touching) Associated symptoms: Swollen nodes. No: Fever, Congestion, Rhinorrhea, Trismus, Unable to swallow, Facial swelling, Headache, Cough Similar symptoms before: Has not had sx before Recently seen: Not recently seen - Additional information Additional information: 25-year-old female has developed some pain in her left ear about 4 days ago. She recalls that she did have use of some ear buds prior to that for an entire night. She has not had otitis externa previously. Review of Systems Constitutional: denies: Fever Ears: reports: Ear pain. 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 - Present Medications Home Medications: Ambulatory Orders Medication Instructions Recorded Confirmed Neomycin/Polymyx/Hc Otic Drops 4 drops LEFTEAR TID #1 bottle 04/21/20 [Cortisporin Ear Susp] - Allergies Allergies/Adverse Reactions: Allergies Allergy/AdvReac Type Severity Reaction Status Date / Time antinausea AdvReac Intermediate Hives Uncoded 04/21/20 21:33 - Social History Does the pt smoke?: Yes Smoking Status: Current every day smoker Does the pt drink ETOH?: Yes Does the pt have substance abuse?: No - Immunizations Immunizations are current?: Yes - POLST Patient has POLST: No PD ED PE NORMAL - Vitals Vital signs reviewed: Yes (hypertensive) - General General: Alert and oriented X 3, No acute distress, Well developed/nourished - HEENT HEENT: Atraumatic, PERRL, EOMI, Other (There is inflammation to the left canal without debris there is swelling to the canal the TM is without erythema and distinct landmarks there is pain to push on the pinna and pull on the tragus. Similar findings on the right are much less.) - Neck Neck: Supple, no meningeal sign, No bony TTP - Cardiac Cardiac: RRR, No murmur - Respiratory Respiratory: No respiratory distress, Clear bilaterally - Derm Derm: Normal color, Warm and dry, No rash - Extremities Extremities: No deformity, No edema - Neuro Neuro: Alert and oriented X 3, marketing teacher 2-12 intact, No motor deficit, No sensory deficit, Normal speech Eye Opening: Spontaneous Motor: Obeys Commands Verbal: Oriented GCS Score: 15 - Psych Psych: Normal mood, Normal affect Results - Vitals Vitals: Vital Signs - 24 hr 04/21/20 21:25 Temperature 36.0 C L Heart Rate 97 Respiratory 16 Rate Blood Pressure 132/94 H O2 Saturation 99 Oxygen O2 Source Room air PD MEDICAL DECISION MAKING - ED course Complexity details: considered differential, d/w patient, d/w family ED course: 25-year-old female with otitis externa is administered Cortisporin otic. Departure - Departure Disposition: Home, Self Care Clinical Impression: Otitis externa Qualifiers: Otitis externa type: unspecified type Chronicity: acute Laterality: left Qualified Code(s): H60.502 - Unspecified acute noninfective otitis externa, left ear Condition: Stable Instructions: ED Otitis Externa Follow-Up: MAURICIO HAIRSTON, MSN, CHEMICAL CHECKER [Primary Care Provider] - Prescriptions: Neomycin/Polymyx/Hc Otic Drops [Cortisporin Ear Susp] 4 drops LEFTEAR TID #1 bottle
== END 2020-04-21 22:24 | disposition home or self-care (01) ==
LOC: ED 21:22
DX: H60.502 Unspecified acute noninfective otitis externa, left ear (principal); F17.200 Nicotine dependence, unspecified, uncomplicated
CPT/HCPCS: 99282; 99284; A9270

== ENCOUNTER 2020-07-20 13:39 | Emergency (ER) | payer MEDICAID, OTHER ==
[2020-07-20 14:21] LABS: BASOPHILS # (AUTO) 0.1 10^3/uL (0.0-0.1); BASOPHILS % (AUTO) 0.7 %; BILIRUBIN,URINE NEGATIVE (NEGATIVE); EOSINOPHILS # (AUTO) 0.3 10^3/uL (0.0-0.7); EOSINOPHILS % (AUTO) 3.2 %; GLUCOSE, URINE (UA) NEGATIVE (NEGATIVE); HGB - HEMOGLOBIN 13.1 g/dL (12.0-16.0); KETONES,URINE (UA) NEGATIVE (NEGATIVE); LEUKOCYTE ESTERASE, URINE NEGATIVE (NEGATIVE); LYMPHOCYTES # (AUTO) 2.3 10^3/uL (1.5-3.5); LYMPHOCYTES % (AUTO) 28.5 %; MEAN PLATELET VOLUME 10.4 fL (7.9-10.8); MONOCYTES # (AUTO) 0.6 10^3/uL (0.0-1.0); MONOCYTES % (AUTO) 7.7 %; NEUTROPHILS # (AUTO) 4.8 10^3/uL (1.5-6.6); NEUTROPHILS % (AUTO) 59.5 %; NITRITE,URINE NEGATIVE (NEGATIVE); OCCULT BLOOD,URINE SMALL (NEGATIVE); PLT - PLATELET COUNT 362 10^3/uL (130-450); PROTEIN,URINE NEGATIVE (NEGATIVE); RED BLOOD COUNT 3.97 10^6/uL (4.20-5.40); RED CELL DISTRIBUTION WIDTH 11.9 % (12.0-15.0); UROBILINOGEN,URINE 0.2 (NORMAL) E.U./dL (NORMAL)
[2020-07-20 14:28] LABS: CLARITY,URINE CLEAR (CLEAR); HCG UR QUAL NEGATIVE
[2020-07-20 14:31] LABS: BACTERIA,URINE Few /HPF (None Seen); CALCIUM 9.4 mg/dL (8.5-10.3); CREATININE 0.7 mg/dL (0.4-1.0); RBC,URINE 0-5 /HPF (0-5); SQUAMOUS EPITHELIAL CELL,UR MANY Squamous (<= Few)
--- NOTE | 2020-07-20 15:39 | ED Physician Documentation ---
PD HPI FEMALE - Stated complaint Stated Complaint: FEMALE - Chief complaint Chief Complaint: Abd Pain - History obtained from History obtained from: Patient - History of Present Illness Timing - onset: How many days ago (8) Timing - duration: Days (8) Timing - details: Gradual onset Pain level max: 0 Pain level max: 0 Associated symptoms: Vaginal bleeding Contributing factors: No: Recently seen: Not recently seen - Additional information Additional information: Patient is a 25-year-old female who presents to the emergency department vaginal bleeding today. She states her normal menses is about 5 days. Currently she has had 8 days of bleeding. She states that there are clots as well. Denies . Has some abdominal cramping. Occasionally has right-sided pelvic pain. None currently. Nothing makes it better or worse. She is not on control. 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 - Present Medications Home Medications: Ambulatory Orders Medication Instructions Recorded Confirmed Norgestimate-Ethinyl Estradiol 1 tab PO DAILY #1 pkg 07/20/20 [Sprintec 28 Day Tablet] - Allergies Allergies/Adverse Reactions: Allergies Allergy/AdvReac Type Severity Reaction Status Date / Time antinausea AdvReac Intermediate Hives Uncoded 07/20/20 13:49 - Social History Does the pt smoke?: Yes Smoking Status: Current every day smoker Does the pt drink ETOH?: Yes Does the pt have substance abuse?: No - Immunizations Immunizations are current?: Yes - POLST Patient has POLST: No PD ED PE NORMAL - Vitals Vital signs reviewed: Yes - General General: Alert and oriented X 3, No acute distress - HEENT HEENT: Moist mucous membranes - Neck Neck: Supple, no meningeal sign - Cardiac Cardiac: RRR, Strong equal pulses - Respiratory Respiratory: No respiratory distress, Clear bilaterally - Abdomen Abdomen: Soft, Non tender, Non distended - Female Female : Pt declined - Derm Derm: Warm and dry - Extremities Extremities: No edema, No calf tenderness / cord - Neuro Neuro: Alert and oriented X 3 Results - Vitals Vitals: Vital Signs - 24 hr 07/20/20 07/20/20 13:46 16:07 Temperature 36.7 C 36.9 C Heart Rate 92 74 Respiratory 16 18 Rate Blood Pressure 133/94 H 118/74 O2 Saturation 99 100 Oxygen O2 Source Room air - Labs Labs: Laboratory Tests 07/20/20 07/20/20 07/20/20 14:10 14:10 14:10 WBC 8.0 RBC 3.97 L Hgb 13.1 Hct 38.5 MCV 97.0 MCH 33.0 H MCHC 34.0 RDW 11.9 L Plt Count 362 MPV 10.4 Neut # (Auto) 4.8 Lymph # (Auto) 2.3 [place] # (Auto) 0.6 Eos # (Auto) 0.3 Baso # (Auto) 0.1 Absolute Nucleated RBC 0.00 Nucleated RBC % 0.0 Sodium 137 Potassium 3.6 Chloride 101 Carbon Dioxide 26 Anion Gap 10.0 BUN 10 Creatinine 0.7 Estimated GFR (MDRD) 100 Glucose 87 Calcium 9.4 Urine Color YELLOW Urine Clarity CLEAR Urine pH 7.0 Ur Specific [place] 1.010 Urine Protein NEGATIVE Urine Glucose (UA) NEGATIVE Urine Ketones NEGATIVE Urine Occult Blood SMALL H Urine Nitrite NEGATIVE Urine Bilirubin NEGATIVE Urine Urobilinogen 0.2 (NORMAL) Ur Leukocyte Esterase NEGATIVE Urine RBC 0-5 Urine WBC 0-3 Ur Squamous Epith Cells MANY Squamous H Urine Bacteria Few Ur Microscopic Review INDICATED Urine Culture Comments NOT INDICATED Urine HCG, Qual NEGATIVE - Rads (name of study) Pelvic ultrasound Radiology: Prelim report reviewed, EMP read contemporaneously, See rad report PD MEDICAL DECISION MAKING - ED course Complexity details: reviewed results, re-evaluated patient, considered differential, d/w patient ED course: 25-year-old female presents to the emergency department with menorrhagia. Normal menses is 5 days, this has been going on for 8 days. No acute findings on ultrasound. Patient declines a pelvic exam at this time. No acute laboratory findings. No significant anemia. Normal vital signs. She feels like the bleeding has decreased. We will trial her on oral contraceptives to see if this helps the bleeding. Discussed the case with gynecology, Dr. Driver, recommends OCPs on follow-up in clinic either with gynecology or the patient's PCP. Patient counseled regarding signs and symptoms for which I believe and urgent re-evaluation would be necessary. Patient with good understanding of and agreement to plan and is comfortable going home at this time This document was made in part using voice recognition software. While efforts are made to proofread this document, sound alike and grammatical errors may occur. 1. Thickening of the endometrium with internal heterogeneity and motion likely representing blood products. No internal vascularity or discrete mass identified. 2. Thick-walled right ovarian cyst likely representing a corpus luteal cyst. Departure - Departure Disposition: Home, Self Care Clinical Impression: Menorrhagia Qualifiers: Menorrhagia type: with regular cycle Qualified Code(s): N92.0 - Excessive and frequent menstruation with regular cycle Condition: Good Instructions: ED Bleeding Menstrual Heavy Follow-Up: MAURICIO HAIRSTON, MSN, RIVET DRIVER [Primary Care Provider] - Within 1 week Prescriptions: Norgestimate-Ethinyl Estradiol [Sprintec 28 Day Tablet] 1 tab PO DAILY #1 pkg Comments: I spoke with Dr. Driver from gynecology today. We will trial you on Sprintec to see if this helps your bleeding. Return if you worsen. There are no significant findings on your laboratory testing or ultrasound today. It does appear that you are still bleeding on your ultrasound.
[2020-07-20 16:08] VITALS: BP 118/74
--- NOTE | 2020-07-20 16:22 | Ultrasound Report ---
PROCEDURE: Pelvic w/Transvag+Doppler Comp INDICATIONS: pelvic pain, vag bleed TECHNIQUE: Real-time scanning was performed of the pelvic organs, with image documentation. Additional endovagi nal scanning was necessary due to incomplete visualization of the adnexal and endometrial structures by transabdominal scanning. COMPARISON: Ultrasound pelvis 11/10/2017. FINDINGS: Transabdominal scanning: Limited scanning through the kidneys shows no hydronephrosis. There is a sm all amount of free fluid in the pelvis which appears within physiologic limits. Endovaginal scanning: Uterus: Uterus measures 9.3 x 4.4 x 5.7 cm. The endometrium measures 1.6 cm in combined thickness. There is heterogeneity of the endometrium with internal motion on real-time imaging. No internal vasc ularity on color Doppler interrogation. Small nabothian cysts noted. Ovaries: The right ovary measures 5.0 x 1.8 x 2.7 cm and the left ovary measures 3.2 x 1.2 x 2.0 cm. There is a thick-walled right ovarian cyst measuring up to 1.2 cm suggestive of an involuting corpus luteal cyst. Scattered ovarian follicles of varying sizes are demonstrated, with the largest measuri ng up to 1.9 cm. The left ovary demonstrates no dominant cyst or discrete mass. There is patent arter ial and venous flow demonstrated within the ovaries bilaterally. IMPRESSION: 1. Thickening of the endometrium with internal heterogeneity and motion likely representing blood pro ducts. No internal vascularity or discrete mass identified. 2. Thick-walled right ovarian cyst likely representing a corpus luteal cyst. Reviewed by: Wes Luu MD on 07/20/2020 4:20 PM PST Approved by: Wes Luu MD on 07/20/2020 4:20 PM PST Station ID: [id number]
== END 2020-07-20 16:43 | disposition home or self-care (01) ==
LOC: ED 13:39
DX: N92.0 Excessive and frequent menstruation with regular cycle (principal); N83.201 Unspecified ovarian cyst, right side; F17.200 Nicotine dependence, unspecified, uncomplicated
CPT/HCPCS: 36415; 80048; 81001; 81003; 81025; 85025; 87086; 93975; 99284

== ENCOUNTER 2021-03-31 13:07 | Emergency (ER) | payer MEDICAID ==
[2021-03-31 13:24] VITALS: BP 134/77
--- NOTE | 2021-03-31 13:42 | ED Physician Documentation ---
History of Present Illness - Stated complaint Stated Complaint: ST/COUGH - Chief complaint Chief Complaint: General - History obtained from History obtained from: Patient, Family - History of Present Illness Timing: Yesterday Pain level max: 0 Pain level now: 0 - Additonal information Additional information: 26-year-old female with known Covid exposure. She is unvaccinated. Now has a dry cough, mild sore throat. Nothing makes it better or worse. Denies any possibility of . No shortness of breath. No chest pain. 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 - Present Medications Home Medications: Ambulatory Orders Medication Instructions Recorded Confirmed Norgestimate-Ethinyl Estradiol 1 tab PO DAILY #1 pkg 07/20/20 [Sprintec 28 Day Tablet] - Allergies Allergies/Adverse Reactions: Allergies Allergy/AdvReac Type Severity Reaction Status Date / Time antinausea AdvReac Intermediate Hives Uncoded 03/31/21 13:23 - Social History Does the pt smoke?: Yes Smoking Status: Current every day smoker Does the pt drink ETOH?: Yes Does the pt have substance abuse?: No - Immunizations Immunizations are current?: Yes - POLST Patient has POLST: No PD ED PE NORMAL - Vitals Vital signs reviewed: Yes - General General: Alert and oriented X 3, No acute distress, Well developed/nourished - HEENT HEENT: Moist mucous membranes - Neck Neck: Supple, no meningeal sign - Cardiac Cardiac: RRR - Respiratory Respiratory: No respiratory distress, Clear bilaterally - Derm Derm: Warm and dry, No rash - Neuro Neuro: Alert and oriented X 3 - Psych Psych: Normal mood, Normal affect Results - Vitals Vitals: Vital Signs - 24 hr 03/31/21 13:21 Temperature 36.5 C Heart Rate 91 Respiratory 16 Rate Blood Pressure 134/77 H O2 Saturation 100 Oxygen O2 Source Room air PD MEDICAL DECISION MAKING - ED course Complexity details: considered differential, d/w patient ED course: Patient with a known Covid exposure. Here for Covid testing. Patient is well- appearing, nontoxic. Afebrile. No hypoxia. No respiratory distress. Covid testing performed. Patient will self quarantine. Patient counseled regarding signs and symptoms for which I believe and urgent re-evaluation would be necessary. Patient with good understanding of and agreement to plan and is comfortable going home at this time This document was made in part using voice recognition software. While efforts are made to proofread this document, sound alike and grammatical errors may occur. Departure - Departure Disposition: Home, Self Care Clinical Impression: Viral URI Condition: Good Instructions: ED URI Viral Follow-Up: your,doctor as needed [Other] Comments: You have a Covid test pending today. You need to self quarantine until your test is negative. Please stay away from any other individuals. If family and/or friends need Covid test, they can call the hospital to set up a screening Covid test during the week. Additionally there are now [id number] Covid tests and many of the pharmacies locally will perform Covid tests as well.
== END 2021-03-31 14:08 | disposition home or self-care (01) ==
LOC: ED 13:07
DX: J06.9 Acute upper respiratory infection, unspecified (principal); Z20.822 Contact with and (suspected) exposure to COVID-19; F17.200 Nicotine dependence, unspecified, uncomplicated
CPT/HCPCS: 99283; 99284

== ENCOUNTER 2021-05-07 08:00 | Outpatient (CLI) | payer MEDICAID | END 2021-05-07 23:59 | disposition home or self-care (01) | LOC: LAB.N 08:00 | PROVIDERS: ATTEND Family Medicine | DX: N39.0 Urinary tract infection, site not specified (principal) | CPT/HCPCS: 87077; 87086 ==

== ENCOUNTER 2021-07-19 18:50 | Outpatient (CLI) | payer MEDICAID ==
--- NOTE | 2021-07-22 09:05 | Ultrasound Report ---
PROCEDURE: OB First Trimester w/TV INDICATIONS: POSITIVE TEST OUTSIDE/PRIOR DATING DATA: Last menstrual period (LMP): May 21, 2021. LMP-based estimated date of delivery (CLARENCE): February 25, 2022. First dating scan (date): July 19, 2021. Estimated date of delivery (CLARENCE) from first dating scan: February 27, 2022. The below data below was generated using the ultrasound CLARENCE of February 27, 2022 TECHNIQUE: Real-time scanning was performed of the fetus and maternal pelvic organs, with image documentation. Endovaginal scanning was also performed to better visualize the fetus and maternal ovaries. FINDINGS: Dichorionic diamniotic twin . A: Embryo: 1.63 cm crown-rump length, compatible with 8 week gestation Heart rate: 171 bpm B: Embryo: 1.74 cm crown-rump length, compatible with an 8 week, 1 day gestation Heart rate: 180 bpm Measurement variability in dating: +/- 4 weeks by LMP, +/- 7 days by mean sac diameter (use before 6 weeks gestation if crown-rump length not able to be measured), +/- 5 days by crown-rump length (6-12 weeks gestation). Maternal organs: Cervix: Closed. Uterus: Retroverted uterus. A 1.7 x 0.6 x 1.1 cm hypoechoic area seen adjacent to the gestational sac , compatible subchorionic hemorrhage. Thick-walled hypoechoic lesions in the right ovary, measuring up to 2.3 cm, most consistent with imelda us luteal cysts. The left ovary is unremarkable. IMPRESSION: 1.Live twin intrauterine gestations as detailed above. 2.Subchorionic hemorrhage as detailed above. Reviewed by: Russell Wagner MD on 07/22/2021 9:04 AM [facility] [place] Approved by: Russell Wagner MD on 07/22/2021 9:04 AM PST Station ID: [id number]
== END 2021-07-19 18:51 | disposition home or self-care (01) ==
LOC: DI 18:50
PROVIDERS: ATTEND Obstetrics & Gynecology
DX: O20.8 Other hemorrhage in early pregnancy (principal); Z3A.08 8 weeks gestation of pregnancy

== ENCOUNTER 2021-07-24 14:06 | Outpatient (CLI) | payer MEDICAID ==
[2021-07-24 14:27] LABS: BASOPHILS % (AUTO) 0.2 %; EOSINOPHILS # (AUTO) 0.1 10^3/uL (0.0-0.7); EOSINOPHILS % (AUTO) 0.9 %; HCT - HEMATOCRIT 32.3 % (37.0-47.0); HGB - HEMOGLOBIN 11.3 g/dL (12.0-16.0); LYMPHOCYTES # (AUTO) 2.5 10^3/uL (1.5-3.5); MEAN CORPUSCULAR HEMOGLOBIN 32.7 pg (27.0-31.0); MEAN CORPUSCULAR VOLUME 93.4 fL (81.0-99.0); MEAN PLATELET VOLUME 10.3 fL (7.9-10.8); MONOCYTES # (AUTO) 0.5 10^3/uL (0.0-1.0); MONOCYTES % (AUTO) 4.7 %; NEUTROPHILS # (AUTO) 7.2 10^3/uL (1.5-6.6); NEUTROPHILS % (AUTO) 69.8 %; PLT - PLATELET COUNT 270 10^3/uL (130-450); RED BLOOD COUNT 3.46 10^6/uL (4.20-5.40); WHITE BLOOD COUNT 10.3 x10^3/uL (4.8-10.8)
[2021-07-24 14:44] LABS: BILIRUBIN,URINE NEGATIVE (NEGATIVE); GLUCOSE, URINE (UA) NEGATIVE (NEGATIVE); KETONES,URINE (UA) NEGATIVE (NEGATIVE); LEUKOCYTE ESTERASE, URINE NEGATIVE (NEGATIVE); NITRITE,URINE NEGATIVE (NEGATIVE); OCCULT BLOOD,URINE NEGATIVE (NEGATIVE); PH,URINE 6.5 PH (5.0-7.5); PROTEIN,URINE NEGATIVE (NEGATIVE); UROBILINOGEN,URINE 0.2 (NORMAL) E.U./dL (NORMAL)
[2021-07-24 14:48] LABS: CLARITY,URINE CLEAR (CLEAR)
[2021-07-24 15:03] LABS: BACTERIA,URINE None Seen /HPF (None Seen); RBC,URINE None Seen /HPF (0-5); SQUAMOUS EPITHELIAL CELL,UR RARE Squamous (<= Few); WBC,URINE 0-3 /HPF (0-5)
[2021-07-25 12:40] LABS: HEPATITIS B SURFACE ANTIGEN NON-REACTIVE (NON-REACTIVE); HEPATITIS C ANTIBODY NON-REACTIVE (NON-REACTIVE)
[2021-07-25 14:52] LABS: HIV AG/AB 4TH GEN NON-REACTIVE (NON-REACTIVE)
== END 2021-07-24 14:07 | disposition home or self-care (01) ==
LOC: LAB 14:06
PROVIDERS: ATTEND Obstetrics & Gynecology
DX: Z36.89 Encounter for other specified antenatal screening (principal); Z32.01 Encounter for pregnancy test, result positive
CPT/HCPCS: 36415; 81001; 85025; 86592; 86762; 86787; 86803; 86850; 86900; 86901; 87086; 87340; 87389

== ENCOUNTER 2021-08-01 14:30 | Outpatient (CLI) | payer MEDICAID ==
[2021-08-01 18:43] LABS: % IRON SATURATION 22 % (20-50); IRON 84 ug/dL (28-170); TOTAL IRON BINDING CAPACITY 386 ug/dL (250-450); TRANSFERRIN 276 mg/dL (192-382)
== END 2021-08-01 14:31 | disposition home or self-care (01) ==
LOC: LAB.N 14:30
PROVIDERS: ATTEND Nurse Practitioner
DX: R53.83 Other fatigue (principal)
CPT/HCPCS: 36415; 81599; 82728; 83020; 83021; 83540; 84466; 85014; 85018; 85041

== ENCOUNTER 2021-10-02 12:57 | Outpatient (CLI) | payer MEDICAID | END 2021-10-02 12:58 | disposition home or self-care (01) | LOC: LAB 12:57 | PROVIDERS: ATTEND Obstetrics & Gynecology | DX: Z34.90 Encounter for supervision of normal pregnancy, unspecified, unspecified trimester (principal) | CPT/HCPCS: 81599; 82105 ==

== ENCOUNTER 2021-10-10 10:28 | Outpatient (CLI) | payer MEDICAID ==
--- NOTE | 2021-10-10 17:37 | Ultrasound Report ---
PROCEDURE: OB Detailed Eval INDICATIONS: SUPERVISION OF OUTSIDE/PRIOR DATING DATA: Last menstrual period (LMP): 05/21/2021. LMP-based estimated date of delivery (CLARENCE): 02/25/2022. First dating scan (date and location): 07/19/2021. Estimated date of delivery (CLARENCE) from first dating scan: 02/27/2021. The below data below was generated using the ultrasound CLARENCE of 02/27/2021 TECHNIQUE: Real-time scanning was performed of the fetus, with image documentation and biometric measurements. COMPARISON: 07/19/2021 FINDINGS: General: Dichorionic diamniotic twin . Fetus A: Presentation: Variable Placenta: Placental position is posterior, without previa. Amniotic fluid index: 5.1 cm. Largest pocket 5.1 cm. heart rate: 152 beats per minute. biometrics: Biparietal diameter: 4.6 cm. 20 weeks 0 days Head circumference: 16.9 cm. 19 weeks 4 days Abdominal circumference: 14.9 cm. 20 weeks 1 day Femur length: 3.1 cm. 19 weeks 5 days Estimated gestational age from initial scan: not applicable. Composite gestational age from present scan: 19 weeks 6 days Estimated weight and percentile: 320 g. 40th percentile. Measurement variability in biometric dating: +/- 10 days from 12-20 weeks gestation, +/- 2 weeks from 20-30 weeks gestation, +/- 3 weeks at 30 weeks gestation or later. Anatomic survey: Neuro: Ventricles are normal at less than 10 mm. Cisterna magna is normal at 3-11 mm. Cerebellum i s normal in size and morphology. Nuchal skin fold: Normal at less than 6 mm between 14 and 20 weeks gestational age. Face: Nose and lips, facial profile are normal. Spine: No evidence for spina bifida. Heart: 4-chambered heart is present, with normal ventricular outflow tracts. Diaphragm: Diaphragm is intact. Stomach: Left-sided stomach is present. Kidneys: The kidneys are normal with no hydronephrosis. Cord: 3 vessel cord has orthotopic insertion. Bladder: Normal in size. Extremities: All 4 extremities are visualized. Fetus B: Presentation: Breech Placenta: Placental position is posterior, without previa. Amniotic fluid index: 4.7 cm, decreased for gestational age. heart rate: 136 beats per minute. biometrics: Biparietal diameter: 4.7 cm 20 weeks 1 day Head circumference: 17.3 cm. 19 weeks 6 days. Abdominal circumference: 14.2 cm. 19 weeks 4 days. Femur length: 3.0 cm. 19 weeks 2 days. Estimated gestational age from initial scan: not applicable. Composite gestational age from present scan: 19 weeks 5 days Estimated weight and percentile: 296 g. 21st percentile Measurement variability in biometric dating: +/- 10 days from 12-20 weeks gestation, +/- 2 weeks from 20-30 weeks gestation, +/- 3 weeks at 30 weeks gestation or later. Anatomic survey: Neuro: Ventricles are normal at less than 10 mm. Cisterna magna is normal at 3-11 mm. Cerebellum i s normal in size and morphology. Nuchal skin fold: Normal at less than 6 mm between 14 and 20 weeks gestational age. Face: Nose and lips, facial profile are normal. Spine: No evidence for spina bifida. Heart: 4-chambered heart is present, with normal ventricular outflow tracts. Diaphragm: Diaphragm is intact. Stomach: Left-sided stomach is present. Kidneys: Right renal pelvis is 5.0 mm. Left renal pelvis is 5.3 mm. This is slightly dilated, with no rmal being less than 5 mm in 2nd trimester. Cord: 3 vessel cord has orthotopic insertion. Bladder: Normal in size. Extremities: All 4 extremities are visualized. IMPRESSION: Fetus A (maternal right) 1. Estimated weight 40th percentile. 2. Deepest pocket 5.1 cm. 3. Anatomy is within normal limits. Fetus B (maternal left) 1. Estimated weight 21st percentile. 2. Deepest pocket 4.7 cm. 3. renal pelviectasis as above. Reviewed by: Wu Cohen on 10/10/2021 5:36 PM PST Approved by: Wu Cohen on 10/10/2021 5:36 PM PST Station ID: [id number]
== END 2021-10-10 10:29 | disposition home or self-care (01) ==
LOC: DI 10:28
PROVIDERS: ATTEND Obstetrics & Gynecology
DX: O30.042 Twin pregnancy, dichorionic/diamniotic, second trimester (principal); Z3A.19 19 weeks gestation of pregnancy; O32.1XX2 Maternal care for breech presentation, fetus 2; O35.8XX2 Maternal care for other (suspected) fetal abnormality and damage, fetus 2; Z36.89 Encounter for other specified antenatal screening

== ENCOUNTER 2021-12-05 09:45 | Outpatient (CLI) | payer MEDICAID ==
[2021-12-05 11:00] LABS: HCT - HEMATOCRIT 27.2 % (37.0-47.0); HGB - HEMOGLOBIN 9.4 g/dL (12.0-16.0); MEAN CORPUSCULAR HEMOGLOBIN 32.3 pg (27.0-31.0); MEAN CORPUSCULAR HGB CONC 34.6 g/dL (32.0-36.0); MEAN CORPUSCULAR VOLUME 93.5 fL (81.0-99.0); MEAN PLATELET VOLUME 10.2 fL (7.9-10.8); RED BLOOD COUNT 2.91 10^6/uL (4.20-5.40); RED CELL DISTRIBUTION WIDTH 13.7 % (12.0-15.0); WHITE BLOOD COUNT 11.2 x10^3/uL (4.8-10.8)
== END 2021-12-05 09:46 | disposition home or self-care (01) ==
LOC: LAB 09:45
PROVIDERS: ATTEND Obstetrics & Gynecology
DX: Z34.90 Encounter for supervision of normal pregnancy, unspecified, unspecified trimester (principal); Z36.89 Encounter for other specified antenatal screening
CPT/HCPCS: 36415; 82950; 85027

== ENCOUNTER 2021-12-20 14:55 | Outpatient (CLI) | payer MEDICAID ==
[2021-12-20] MEDS ORDERED: FERRIC GLUCONATE 125 MG in SODIUM CHLORIDE 0.9% 100ML 100 ML IV ONE (16:00)
[2021-12-20 17:34] VITALS: BP 117/64
--- NOTE | 2021-12-23 16:11 | PROVIDER PROGRESS NOTE ---
- HPI Chief Complaint: Other (iron infuson) Current : Current EDU 02/25/22 Gestation 30 Weeks and 3 Days 3 Para 2 Vital Signs Temperature 98.1 F 12/20/21 15:05 Heart Rate 83 12/20/21 15:05 Respiratory Rate 20 12/20/21 15:05 Blood Pressure 130/75 12/20/21 15:05 O2 Saturation 100 12/20/21 15:05 Temperature 98.2 F 12/20/21 17:31 Heart Rate 74 12/20/21 17:31 Respiratory Rate 17 12/20/21 17:31 Blood Pressure 117/64 12/20/21 17:31 O2 Saturation 100 12/20/21 15:05 - Procedures NST Procedure: NST Procedure Patient States Movement Yes - Plan Plan: Patient is a 26 yo at 30+3 wga with di/di twins with growth restriction and anemia. Presents for iron infusion Patient was administered ferric gluconate 125 mg IV x1 She was discharged after administration of medication. No NST was performed as it was not indicated for this visit. She was not seen or evaluated by provider as this was a planned medication administration/nurse visit.
== END 2021-12-20 17:05 | disposition home or self-care (01) ==
LOC: WFO 14:55 → FBP 15:11 → WFO 17:05
PROVIDERS: ATTEND Obstetrics & Gynecology
DX: O30.043 Twin pregnancy, dichorionic/diamniotic, third trimester (principal); O99.013 Anemia complicating pregnancy, third trimester; Z3A.30 30 weeks gestation of pregnancy
CPT/HCPCS: 96365; J2916

== ENCOUNTER 2021-12-26 14:48 | Outpatient (CLI) | payer MEDICAID ==
[2021-12-26 15:07] VITALS: BP 118/73
--- NOTE | 2021-12-26 17:51 | PROVIDER PROGRESS NOTE ---
- HPI Chief Complaint: Other ( tachycardia) Current : Current EDU 02/25/22 Gestation 31 Weeks and 2 Days 3 Para 2 Vital Signs Temperature 97.5 F L 12/26/21 15:06 Heart Rate 68 12/26/21 15:06 Respiratory Rate 16 12/26/21 15:06 Blood Pressure 118/73 12/26/21 15:06 O2 Saturation 100 12/26/21 15:06 Temperature 97.5 F L 12/26/21 15:23 Heart Rate 68 12/26/21 15:06 Respiratory Rate 16 12/26/21 15:06 Blood Pressure 118/73 12/26/21 15:06 O2 Saturation 100 12/26/21 15:06 - Procedures OB Procedure Performed: NST Diagnosis/Indication for NST: Other ( tachycardia, di-di twins) NST Procedure: NST Procedure Start Date 12/26/21 Start Time 15:07 Stop Time 15:40 Vibroacoustic Stimulation Used No Patient States Movement Yes Service Date of procedure: 12/26/21 (Read 12/26/21) Findings: FHT: Baby A: 120 bpm baseline, moderate variability, accelerations present, no decelerations. Reactive NST Baby B: 115 beats minute baseline, moderate variability, accelerations present, no decelerations. Reactive NST. [place]vel: Quiescent - Plan Plan: Patient is a 26-year-old G3, P2 at 31 weeks 2 days gestation presenting to triage for tachycardia. She has good movement, no leaking, no vaginal bleeding. She denies headache, right upper quadrant pain, changes in vision. Course: PROBLEMS: TWIIN - di di. Taking ASA for preeclampsia prevention.. TOOTH ABSCESS: Awaiting root canal. Having difficulty scheduling 09/18 insurance -Resolved LMP: 05/21/2021 CLARENCE by LMP: 02/25/2022 US Date 07/19/2021, US Age 8 weeks 0 days, CLARENCE by ultrasound: 02/27/2022 Final CLARENCE: 02/25/2022 by LMP consistent with 8 week ultrasound O+/rubella EQUIVOCAL [id number] Genetic testing: Desires HARMONY/AFP/Carrier screening. [place] (no Y chrom; females x2 and low risk). MSAFP drawn 10/02 NEGATIVE FAS: 10/10/21 TWIN A: 40%ile, variable presentation, posterior placenta TWIN B: 21%ile, breech, marginal renal pelviectasis Growth US on 12/09/21 shows EFW 6%ile for twin A and 8%ile for twin B--> REFERRAL TO MFM SUBMITTED Glucola 12/05/21 105 passed HCT 27; not tolerating po iron. REFERRAL FOR IV IRON SUBMITTED Influenza :09/04/21 Recent COVID infection. Would like to wait on vaccine. TDAP: 11/29/21 GBS: at 36 weeks HSV: Denies Breast pump rx:11/29/2021 MOD: Repeat 02/18 at [place] PP contraception: Likely copper IUD. PAP: 08/06/2021 NORMAL OB history: -0-0-2 1. 09/25/2009, 40 weeks, section, 7 pounds 8 ounces 2. 05/09/2013, 39 weeks, 6 pounds 3 ounces, section Past medical history Anemia Anxiety Depression Ovarian cyst Fracture left patella COVID infection 06/2021 Past surgical history Appendectomy, 2012 section x2 Family history Mother: Anxiety, hypertension, diabetes Brother: Respiratory disease with history of TB Maternal grandmother: Diabetes Uncle: Alcoholism Social history Former smoker, quit 07/2021. Previous heavy drinker until early 2020, denies current tobacco, alcohol, drugs Assessment and plan 18-year-old at 31 weeks 2 days gestation with Di Di twins here for tachycardia 1. 31 weeks gestation -Both fetuses show category 1 tracing with no tachycardia. There was a period of prolonged accelerations that was likely observed in clinic. In triage with extended monitoring, this appears to be very active fetus without concern. BPP's for both fetuses were 8/8. 2. Di-Di twins Patient being comanaged with MFM in [place]. Plan to deliver in [place]. -Is getting set up this week for surveillance twice weekly. She will get BPP and ultrasound at [place] as well as 1 NST here at [facility]. -Follow-up outpatient with regular provider. 3. Previous section times low-transverse section x2
--- NOTE | 2021-12-26 18:24 | Ultrasound Report ---
PROCEDURE: OB Biophysical Profile INDICATIONS: Twin Gestation, elevated FHR twin A OUTSIDE/PRIOR DATING DATA: Last menstrual period (LMP): . LMP-based estimated date of delivery (CLARENCE): . First dating scan (date and location): . Estimated date of delivery (CLARENCE) from first dating scan: . The below data below was generated using the CLARENCE of TECHNIQUE: Real-time scanning was performed of the fetus, with image documentation and biometric zia surements. Biophysical profile was also obtained. Endovaginal scanning: COMPARISON: OB ultrasound 12/09/2021. FINDINGS: General: A dichorionic diamnionic living intrauterine gestation is present. Fetus A: Presentation: Vertex Placenta: Placental position is posterior, without previa. Amniotic fluid index: 12.8 cm. Largest pocket 4.0 cm heart rate: 123 beats per minute. Estimated gestational age from initial scan: 31 weeks 0 days Biophysical profile: Tone: 2 points. Movement: 2 points. Respiration: 2 points. Largest pocket of fluid: 2 points. Umbilical artery Doppler: 2.8, 3.0, 2.9 Fetus B: Presentation: Vertex Placenta: Placental position is transverse, without previa. Amniotic fluid index: 12.7 cm. Largest pocket 5.6 cm heart rate: 130 beats per minute. Estimated gestational age from initial scan: 31 weeks 0 days Biophysical profile: Tone: 2 points. Movement: 2 points. Respiration: 2 points. Largest pocket of fluid: 2 points. Umbilical artery Doppler: 2.8, 2.5, 2.7 Maternal cervical canal: 4.6 cm long; normal length is 2.5 cm or more. IMPRESSION: Dichorionic diamnionic live intrauterine is present. The BPP 8 out of 8 for both fetus A and fetus B. Reviewed by: Qi Gan MD on 12/26/2021 6:23 PM PDT Approved by: Qi Gan MD on 12/26/2021 6:23 PM PDT Station ID: [id number]
== END 2021-12-26 23:45 | disposition home or self-care (01) ==
LOC: WFO 14:48 → FBP 14:50 → WFO 17:38
PROVIDERS: ATTEND Obstetrics & Gynecology
DX: O09.893 Supervision of other high risk pregnancies, third trimester (principal); O30.043 Twin pregnancy, dichorionic/diamniotic, third trimester; Z87.891 Personal history of nicotine dependence; Z3A.31 31 weeks gestation of pregnancy
CPT/HCPCS: 59025

== ENCOUNTER 2022-01-08 13:01 | Outpatient (CLI) | payer MEDICAID ==
[2022-01-08 13:22] VITALS: BP 116/68
--- NOTE | 2022-01-08 16:59 | Ultrasound Report ---
PROCEDURE: OB Biophysical Profile INDICATIONS: NST of twin gestation OUTSIDE/PRIOR DATING DATA: Last menstrual period (LMP): 05/21/2021. LMP-based estimated date of delivery (CLARENCE): 02/25/2022. First dating scan (date and location): 07/19/2021. Estimated date of delivery (CLARENCE) from first dating scan: 02/27/2022. The below data below was generated using the ultrasound CLARENCE of 02/27/2022 TECHNIQUE: Real-time scanning was performed of the fetus, with image documentation and biometric zia surements. Biophysical profile was also obtained. COMPARISON: OB ultrasound 12/26/2021 FINDINGS: Fetus A: General: A dichorionic diamnionic living intrauterine gestation is present. Presentation: Cephalic Placenta: Placental position is posterior, without previa. Amniotic fluid index: 12.8 cm, within normal limits for gestational age. Largest pocket 4.5 cm heart rate: 133 beats per minute. Maternal cervical canal: 4.0 cm long; normal length is 2.5 cm or more. biometrics: Estimated gestational age from initial scan: 32 weeks 6 days Biophysical profile: Tone: 2 points. Movement: 2 points. Respiration: 2 points. Largest pocket of fluid: 2 points. Umbilical artery Doppler: 2.7, 2.5, 2.9 Fetus B: General: A dichorionic diamnionic living intrauterine gestation is present. Presentation: Vertex Placenta: Placental position is posterior, without previa. Amniotic fluid index: 12.1 cm, within normal limits for gestational age. Largest pocket 3.4 cm heart rate: 143 beats per minute. Maternal cervical canal: 4.0 cm long; normal length is 2.5 cm or more. biometrics: Estimated gestational age from initial scan: 32 weeks 6 days Biophysical profile: Tone: 2 points. Movement: 2 points. Respiration: 2 points. Largest pocket of fluid: 2 points. Umbilical artery Doppler: 2.0, 3.1, 2.9 IMPRESSION: Dichorionic diamnionic twin intrauterine . BPP 8 out of 8 for both Fetus A and B Umbilical artery Doppler for fetus B measures 2.0, 3.1 and 2.9 cm and for fetus A 2.7, 2.5, 2.9 Reviewed by: Qi Gan MD on 01/08/2022 4:57 PM PDT Approved by: Qi Gan MD on 01/08/2022 4:57 PM PDT Station ID: [id number]
--- NOTE | 2022-01-08 16:59 | Ultrasound Report ---
PROCEDURE: OB Biophysical Profile INDICATIONS: non-reactive NST of twin gestation OUTSIDE/PRIOR DATING DATA: Last menstrual period (LMP): 05/21/2021. LMP-based estimated date of delivery (CLARENCE): 02/25/2022. First dating scan (date and location): 07/19/2021. Estimated date of delivery (CLARENCE) from first dating scan: 02/27/2022. The below data below was generated using the ultrasound CLARENCE of 02/27/2022 TECHNIQUE: Real-time scanning was performed of the fetus, with image documentation and biometric zia surements. Biophysical profile was also obtained. COMPARISON: OB ultrasound 12/26/2021 FINDINGS: Fetus A: General: A dichorionic diamnionic living intrauterine gestation is present. Presentation: Cephalic Placenta: Placental position is posterior, without previa. Amniotic fluid index: 12.8 cm, within normal limits for gestational age. Largest pocket 4.5 cm heart rate: 133 beats per minute. Maternal cervical canal: 4.0 cm long; normal length is 2.5 cm or more. biometrics: Estimated gestational age from initial scan: 32 weeks 6 days Biophysical profile: Tone: 2 points. Movement: 2 points. Respiration: 2 points. Largest pocket of fluid: 2 points. Umbilical artery Doppler: 2.7, 2.5, 2.9 Fetus B: General: A dichorionic diamnionic living intrauterine gestation is present. Presentation: Vertex Placenta: Placental position is posterior, without previa. Amniotic fluid index: 12.1 cm, within normal limits for gestational age. Largest pocket 3.4 cm heart rate: 143 beats per minute. Maternal cervical canal: 4.0 cm long; normal length is 2.5 cm or more. biometrics: Estimated gestational age from initial scan: 32 weeks 6 days Biophysical profile: Tone: 2 points. Movement: 2 points. Respiration: 2 points. Largest pocket of fluid: 2 points. Umbilical artery Doppler: 2.0, 3.1, 2.9 IMPRESSION: Dichorionic diamnionic twin intrauterine . BPP 8 out of 8 for both Fetus A and B Umbilical artery Doppler for fetus B measures 2.0, 3.1 and 2.9 cm and for fetus A 2.7, 2.5, 2.9 Reviewed by: Qi Gan MD on 01/08/2022 4:58 PM PDT Approved by: Qi Gan MD on 01/08/2022 4:58 PM PDT Station ID: [id number]
--- NOTE | 2022-01-08 20:40 | PROCEDURE REPORT ---
- HPI Diagnosis/Indication for NST: Other (Hemalatha twins with growth restriction) Current EDU 02/25/22 Gestation 33 Weeks and 1 Days 3 Para 2 Vital Signs Temperature 98.2 F 01/08/22 13:17 Heart Rate 84 01/08/22 13:17 Respiratory Rate 16 01/08/22 13:17 Blood Pressure 116/68 01/08/22 13:17 Temperature 98.2 F 01/08/22 16:30 Heart Rate 84 01/08/22 16:30 Respiratory Rate 16 01/08/22 16:30 Blood Pressure 116/68 01/08/22 16:30 O2 Saturation - NST Procedure NST Procedure Start Date 01/08/22 Start Time 13:12 Stop Time 13:50 Vibroacoustic Stimulation Used No Patient States Movement Yes TWIN A: 145 mod pérez 15x15 accels no decels TWIN B: 140 mod pérez no accels no decels; unresponsive to VAS TOCO: Quiet - Results and Plan Plan: Patient is a 26 yo at 33+1 wga with a hemalatha twin affected by growth restriction here for NST Twin A: Cat I tracing Twin B: Non-reactive Ordered BPP 03/24 for Twin A and Twin B Cont with twice weekly NST and weekly DEMETRIO DX: Di Di twin at 33+1 wga Growth restricted fetus DOS: 01/08/22 NST read: 01/08/22
== END 2022-01-08 16:40 | disposition home or self-care (01) ==
LOC: WFO 13:01 → FBP 13:03 → WFO 16:40
PROVIDERS: ATTEND Obstetrics & Gynecology
DX: O36.5930 Maternal care for other known or suspected poor fetal growth, third trimester, not applicable or unspecified (principal); O30.043 Twin pregnancy, dichorionic/diamniotic, third trimester; Z3A.33 33 weeks gestation of pregnancy
CPT/HCPCS: 59025

== ENCOUNTER 2022-01-20 11:04 | Outpatient (CLI) | payer MEDICAID ==
[2022-01-20 13:38] VITALS: BP 124/83
--- NOTE | 2022-01-21 15:11 | PROCEDURE REPORT ---
- HPI Diagnosis/Indication for NST: Multiple gestation Current EDU 02/25/22 Gestation 34 Weeks and 6 Days 3 Para 2 Vital Signs Temperature 98 F 01/20/22 11:00 Heart Rate 92 01/20/22 11:00 Respiratory Rate 18 01/20/22 11:00 Blood Pressure 132/84 H 01/20/22 11:00 Temperature 98 F 01/20/22 12:15 Heart Rate 82 01/20/22 12:15 Respiratory Rate 18 01/20/22 12:15 Blood Pressure 124/83 H 01/20/22 12:15 O2 Saturation - NST Procedure NST Procedure Start Date 01/20/22 Start Time 11:00 Stop Time 12:16 Vibroacoustic Stimulation Used No Patient States Movement Yes - Results and Plan Plan: Patient is a 26-year-old at 34 weeks 6 days gestation here for scheduled NST. NST Performed 01/20/22 NST Read 01/20/22 FHT: A: 140 bpm baseline, moderate variability, accelerations present, no decelerations. Reactive NST B: 145 bpm baseline, moderate variability, accelerations present, no decelerations. Reactive NST [place]: Rare Diagnosis 34 weeks gestation Di-di twins Intrauterine growth restriction Continue with twice weekly NST.
== END 2022-01-20 12:20 | disposition home or self-care (01) ==
LOC: WFO 11:04 → FBP 11:05 → WFO 12:20
PROVIDERS: ATTEND Obstetrics & Gynecology
DX: O36.5930 Maternal care for other known or suspected poor fetal growth, third trimester, not applicable or unspecified (principal); O30.043 Twin pregnancy, dichorionic/diamniotic, third trimester; Z3A.34 34 weeks gestation of pregnancy
CPT/HCPCS: 59025

== ENCOUNTER 2022-02-07 17:28 | Emergency (ER) | payer MEDICAID ==
[2022-02-07] MEDS ORDERED: HYDROmorphone 1 MG/ML CARPUJECT IVP STA (18:02)
[2022-02-07] MEDS ORDERED: SODIUM CHLORIDE 0.9% 1,000 ML IV STA (18:02)
--- NOTE | 2022-02-07 18:09 | ED Physician Documentation ---
History of Present Illness - Stated complaint Stated Complaint: CHEST/SHOULDER PX-S/P - Chief complaint Chief Complaint: Cardiac - Additonal information Additional information: 26-year-old female presents the emergency department for evaluation of sudden onset chest pain and left shoulder pain about 1 hour ago. She is day 3 . . She delivered a twin via at [facility] on the with De. Stubbs. She was at the hospital getting blood drawn for her babies when she began to feel the chest pain that is worse with a deep breath. She does have some mild leg swelling on the right that has been present sicne delivery. Patient reports scant lochia. She does have some lower midline incision tenderness but not more than you would expect. There have been no fevers. She is breast-feeding. Review of Systems Constitutional: denies: Fever, Chills Eyes: reports: Reviewed and negative Ears: reports: Reviewed and negative Cardiac: reports: Chest pain / pressure, Pedal edema (Pedal edema right foot). 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 - Present Medications Home Medications: Ambulatory Orders Medication Instructions Recorded Confirmed Norgestimate-Ethinyl Estradiol 1 tab PO DAILY #1 pkg 07/20/20 [Sprintec 28 Day Tablet] Aspirin [Aspirin EC] 81 mg PO DAILY #90 tab 08/07/21 oxyCODONE [Roxicodone] 2.5 - 5 mg PO Q4H PRN #10 tablet 08/07/21 - Allergies Allergies/Adverse Reactions: Allergies Allergy/AdvReac Type Severity Reaction Status Date / Time droperidol Allergy Severe Hives Verified 02/07/22 17:48 Phenothiazines Allergy Severe Hives Verified 02/07/22 17:48 Serotonin 5HT-3 Antagonists Allergy Severe Hives Verified 02/07/22 17:48 - Social History Does the pt smoke?: Yes Smoking Status: Current every day smoker Does the pt drink ETOH?: Yes Does the pt have substance abuse?: No - Immunizations Immunizations are current?: Yes - POLST Patient has POLST: No PD ED PE EXPANDED - General General: Alert, Anxious, In Pain - Cardiac Cardiac: Regular Rate, Radial strong equal, Pedal strong equal. No: Murmur Present - Respiratory Respiratory: Clear to ausultation oseas. No: Distress, Labored (Room air saturations 98%) - Abdomen Abdomen: Normal Bowel sounds, Tender to palpation (Tenderness across the lower abdominal transverse incision. No drainage surrounding erythema. Tenderness is not more than you would expect post op), Surgical scars. No: Rebound, Guarding - Derm Derm: Normal color, Warm and dry - Extremities Extremities: Normal, Pedal edema R (Mild nonpitting edema to the right foot. No posterior calf leg tenderness either leg.), Pedal Pulses Present. No: Tenderness - Neuro Neuro: Alert and Oriented X 3. No: Confused, Disoriented - GCS Eye Opening: Spontaneous Motor: Obeys Commands Verbal: Oriented Total: 15 Results - Vitals Vitals: Vital Signs - 24 hr 02/07/22 02/07/22 02/07/22 17:41 17:47 18:39 Temperature 37.1 C Heart Rate 84 68 64 Respiratory 20 18 16 Rate Blood Pressure 145/101 H 150/101 H 149/103 H O2 Saturation 98 99 99 02/07/22 02/07/22 02/07/22 19:30 19:56 20:26 Temperature Heart Rate 61 61 59 L Respiratory 18 18 17 Rate Blood Pressure 149/104 H 151/97 H 126/88 H O2 Saturation 98 98 97 Oxygen O2 Source Room air - EKG (time done) 1741 Rate: Rate (enter#) (72) Rhythm: NSR [place]: Normal Intervals: Normal [place] QRS: Normal Ischemia: Normal ST segments Compare to prior EKG: Old EKG unavailable Computer interpretation: Agree with computer - Labs Labs: Laboratory Tests 02/07/22 02/07/22 02/07/22 18:04 18:04 18:04 WBC 8.8 RBC 3.65 L Hgb 12.1 Hct 35.1 L MCV 96.2 MCH 33.2 H MCHC 34.5 RDW 14.3 Plt Count 245 MPV 10.8 Neut # (Auto) 5.0 Lymph # (Auto) 2.8 [place] # (Auto) 0.4 Eos # (Auto) 0.5 Baso # (Auto) 0.0 Absolute Nucleated RBC 0.00 Nucleated RBC % 0.0 D-Dimer Sodium 140 Potassium 3.9 Chloride 106 Carbon Dioxide 26 Anion Gap 8.0 BUN 11 Creatinine 0.6 Estimated GFR (MDRD) 119 Glucose 73 Calcium 9.0 Phosphorus 3.5 Magnesium 1.8 Total Bilirubin 0.5 AST 23 ALT 16 Alkaline Phosphatase 147 H Troponin I High Sens 3.1 B-Natriuretic Peptide Total Protein 6.7 Albumin 3.0 L Globulin 3.7 Albumin/Globulin Ratio 0.8 L Lipase 25 Urine Color Urine Clarity Urine pH Ur Specific [place] Urine Protein Urine Glucose (UA) Urine Ketones Urine Occult Blood Urine Nitrite Urine Bilirubin Urine Urobilinogen Ur Leukocyte Esterase Urine RBC Urine WBC Ur Squamous Epith Cells Urine Bacteria Ur Microscopic Review Urine Culture Comments SARS-CoV-2 (PCR) 02/07/22 02/07/22 02/07/22 18:04 18:04 18:15 WBC RBC Hgb Hct MCV MCH MCHC RDW Plt Count MPV Neut # (Auto) Lymph # (Auto) [place] # (Auto) Eos # (Auto) Baso # (Auto) Absolute Nucleated RBC Nucleated RBC % D-Dimer 342.3 H Sodium Potassium Chloride Carbon Dioxide Anion Gap BUN Creatinine Estimated GFR (MDRD) Glucose Calcium Phosphorus Magnesium Total Bilirubin AST ALT Alkaline Phosphatase Troponin I High Sens B-Natriuretic Peptide 116 H Total Protein Albumin Globulin Albumin/Globulin Ratio Lipase Urine Color Urine Clarity Urine pH Ur Specific [place] Urine Protein Urine Glucose (UA) Urine Ketones Urine Occult Blood Urine Nitrite Urine Bilirubin Urine Urobilinogen Ur Leukocyte Esterase Urine RBC Urine WBC Ur Squamous Epith Cells Urine Bacteria Ur Microscopic Review Urine Culture Comments SARS-CoV-2 (PCR) NOT DETECTED 02/07/22 19:32 WBC RBC Hgb Hct MCV MCH MCHC RDW Plt Count MPV Neut # (Auto) Lymph # (Auto) [place] # (Auto) Eos # (Auto) Baso # (Auto) Absolute Nucleated RBC Nucleated RBC % D-Dimer Sodium Potassium Chloride Carbon Dioxide Anion Gap BUN Creatinine Estimated GFR (MDRD) Glucose Calcium Phosphorus Magnesium Total Bilirubin AST ALT Alkaline Phosphatase Troponin I High Sens B-Natriuretic Peptide Total Protein Albumin Globulin Albumin/Globulin Ratio Lipase Urine Color YELLOW Urine Clarity CLEAR Urine pH 7.0 Ur Specific [place] 1.010 Urine Protein NEGATIVE Urine Glucose (UA) NEGATIVE Urine Ketones NEGATIVE Urine Occult Blood MODERATE H Urine Nitrite NEGATIVE Urine Bilirubin NEGATIVE Urine Urobilinogen 0.2 (NORMAL) Ur Leukocyte Esterase NEGATIVE Urine RBC 0-5 Urine WBC 0-3 Ur Squamous Epith Cells MANY Squamous H Urine Bacteria None Seen Ur Microscopic Review INDICATED Urine Culture Comments NOT INDICATED SARS-CoV-2 (PCR) - Rads (name of study) cxr Radiology: Final report received (No acute cardiopulmonary process) CT PA Radiology: Final report received (No pulmonary embolus is seen) US DVT right leg Radiology: Final report received (No deep vein thrombosis) PD MEDICAL DECISION MAKING - ED course Complexity details: reviewed results, re-evaluated patient, d/w patient, d/w healthcare economics consultant ([place]) ED course: 26-year-old female who is 3 days presents to the emergency department for evaluation of sudden onset chest pain that occurred when she was leaving the clinic after a lab visit for her infant. She delivered via , twins, on the at [facility]. Apparently there were no complicating features of the but she delivered early due to intrauterine growth retardation. On presentation she reported pleuritic chest pain. She was not hypoxic. She had cardiopulmonary auscultation that was unremarkable. We did note very mild right foot pedal edema. A subsequent ultrasound DVT was negative. Screening labs showed no leukocytosis. She had a mildly elevated D-dimer as well as an alk phos but this is expected in the first few days . Her LFTs were unremarkable. However the risk for preeclampsia and PE was overwhelming given the history of twin and . In consultation with Dr. Bryson we made the decision to proceed with CT pulmonary angiogram as well as BNP Evaluation. Subsequent BNP was only mildly elevated at 116. The angiogram of her chest did not reveal any Pulmonary embolus. I rediscussed the case with Dr. Bryson. She would recommend a small amount of Lasix 10 mg orally. Though the patient did have very mildly elevated blood pressures she would not institute labetalol at this stage. She will asked the patient to come back to the clinic next week for a nurse visit and blood pressure check. Did not feel that the history and symptoms as well as lab values meet the criteria for preeclampsia The plan and findings were discussed with the patient and her partner at the bedside. Emergent return precautions were discussed for fevers, chest pain severe respiratory distress fainting episodes or any other emergent concerns Departure - Departure Disposition: 01 Home, Self Care Clinical Impression: Chest pain Qualifiers: Chest pain type: chest pain on breathing Qualified Code(s): R07.1 - Chest pain on breathing; R07.81 - Pleurodynia Condition: Stable Record reviewed to determine appropriate education?: Yes Comments: Kalpana you are seen today in the emergency department for chest pain that developed this afternoon as you were leaving the lab. Because you are 3 days our concern was that you could have had a pulmonary embolus. The ultrasound of your leg showed no blood clots. The CT of your chest showed no blood clots in the lungs, no findings of heart failure or infection. Your screening labs and electrolytes were all essentially normal and within range for somebody who is . Your blood pressures today have been very mildly elevated. Please call the women's clinic on Thursday to arrange for a nurse visit this upcoming week with a blood pressure check. If at any point you develop sudden severe chest pain, have shortness of air, fainting episodes, develop any fevers then please do not hesitate to return im mediately to the ER for a second evaluation.
[2022-02-07 18:11] LABS: BASOPHILS % (AUTO) 0.5 %; EOSINOPHILS # (AUTO) 0.5 10^3/uL (0.0-0.7); EOSINOPHILS % (AUTO) 5.8 %; HCT - HEMATOCRIT 35.1 % (37.0-47.0); HGB - HEMOGLOBIN 12.1 g/dL (12.0-16.0); LYMPHOCYTES # (AUTO) 2.8 10^3/uL (1.5-3.5); LYMPHOCYTES % (AUTO) 32.1 %; MEAN CORPUSCULAR HEMOGLOBIN 33.2 pg (27.0-31.0); MEAN CORPUSCULAR HGB CONC 34.5 g/dL (32.0-36.0); MEAN CORPUSCULAR VOLUME 96.2 fL (81.0-99.0); MEAN PLATELET VOLUME 10.8 fL (7.9-10.8); MONOCYTES # (AUTO) 0.4 10^3/uL (0.0-1.0); MONOCYTES % (AUTO) 4.3 %; NEUTROPHILS % (AUTO) 56.8 %; PLT - PLATELET COUNT 245 10^3/uL (130-450); RED BLOOD COUNT 3.65 10^6/uL (4.20-5.40); RED CELL DISTRIBUTION WIDTH 14.3 % (12.0-15.0); WHITE BLOOD COUNT 8.8 x10^3/uL (4.8-10.8)
[2022-02-07 18:26] LABS: ALBUMIN/GLOBULIN RATIO 0.8 (1.0-2.2); BILIRUBIN,TOTAL 0.5 mg/dL (0.2-1.0); CREATININE 0.6 mg/dL (0.4-1.0); MAGNESIUM 1.8 mg/dL (1.7-2.8); PHOSPHORUS 3.5 mg/dL (2.5-4.6); POTASSIUM 3.9 mmol/L (3.5-5.0); TOTAL PROTEIN 6.7 g/dL (6.7-8.2)
--- NOTE | 2022-02-07 18:29 | XRAY Report ---
PROCEDURE: Chest 1 View X-Ray INDICATIONS: chest pain TECHNIQUE: One view of the chest was acquired. COMPARISON: None FINDINGS: Surgical changes and devices: None. Lungs and pleura: No pleural effusions or pneumothorax. Lungs are clear. Mediastinum: Mediastinal contours appear normal. Heart size is normal. Bones and chest wall: No suspicious bony lesions. Overlying soft tissues appear unremarkable. IMPRESSION: No acute cardiopulmonary findings Reviewed by: Kodak Hansen MD on 02/07/2022 5:28 PM AKDT Approved by: Kodak Hansen MD on 02/07/2022 5:28 PM AKDT Station ID: [id number]
[2022-02-07] MEDS ORDERED: IOPAMIDOL-300 50 ML VIAL ONE (19:12)
[2022-02-07] MEDS ORDERED: IOPAMIDOL-300 50 ML VIAL IVP ONE (19:30)
[2022-02-07 19:38] LABS: BILIRUBIN,URINE NEGATIVE (NEGATIVE); GLUCOSE, URINE (UA) NEGATIVE (NEGATIVE); KETONES,URINE (UA) NEGATIVE (NEGATIVE); LEUKOCYTE ESTERASE, URINE NEGATIVE (NEGATIVE); NITRITE,URINE NEGATIVE (NEGATIVE); OCCULT BLOOD,URINE MODERATE (NEGATIVE); PROTEIN,URINE NEGATIVE (NEGATIVE); UROBILINOGEN,URINE 0.2 (NORMAL) E.U./dL (NORMAL)
--- NOTE | 2022-02-07 19:43 | Ultrasound Report ---
PROCEDURE: Duplex Ext Veins Right INDICATIONS: right leg swelling, chest pain after TECHNIQUE: Real-time imaging, as well as color and pulse Doppler interrogation, were performed of the lower extr emity deep veins from the inguinal ligament to the popliteal fossa. COMPARISON: None. FINDINGS: The deep veins are normally compressible, and free of intraluminal thrombus. Color and pu lse Doppler demonstrate normal phasic intraluminal flow. There is normal augmentation response to di stal compression maneuver. IMPRESSION: 1. No DVT in the right lower extremity. 2. Preliminary results given by the account associate to the ordering provider immediately following the st udy. Reviewed by: Mallika Luciano MD on 02/07/2022 7:41 PM PDT Approved by: Mallika Luciano MD on 02/07/2022 7:41 PM PDT Station ID: [id number]
[2022-02-07 19:45] LABS: CLARITY,URINE CLEAR (CLEAR); WBC,URINE 0-3 /HPF (0-5)
[2022-02-07 19:46] LABS: BACTERIA,URINE None Seen /HPF (None Seen); RBC,URINE 0-5 /HPF (0-5); SQUAMOUS EPITHELIAL CELL,UR MANY Squamous (<= Few)
--- NOTE | 2022-02-07 19:47 | CT Report ---
PROCEDURE: ANGIO CHEST W/WO INDICATIONS: chest pain: r/o r/p PE CONTRAST: IV CONTRAST: Isovue 300 ml: 80 PO CONTRAST: *NO PO CONTRAST TECHNIQUE: After the administration of intravenous contrast, 2 mm axial images were acquired from the pulmonary apices to the posterior costophrenic angles during the arterial phase. In addition, 1 mm lung kernel and 5 mm soft tissue kernel reconstructions were performed. 3-dimensional coronal oblique maximum int ensity projection (MIP) reformats, 8 mm axial MIP, and 5 mm coronal and sagittal MPR reformats were t hen performed through the thorax. For radiation dose reduction, the following was used: automated exp osure control, adjustment of mA and/or kV according to patient size. COMPARISON: None FINDINGS: Image quality: Excellent. Pulmonary arteries: Pulmonary arteries are normal in size, and demonstrate no intraluminal filling d efects to suggest central pulmonary embolism. Lungs and pleura: Decreased lung volumes and small consolidation in the left posterior costophrenic s ulcus.. No pleural effusions or pneumothorax. Central and peripheral airways are patent. Mediastinum: Heart size is normal, without pericardial effusion. No mediastinal or hilar adenopathy . Thoracic aorta is normal in caliber and enhancement. Esophagus is normal in caliber, without hiat al hernia. Bones and chest wall: No suspicious bony lesions. Ribs and thoracic spine appear intact throughout. No axillary or supraclavicular adenopathy. The thyroid is normal in size and there are no incident al findings. Abdomen: Visualized upper abdominal solid organs appear normal in the early arterial phase of enhanc ement. IMPRESSION: 1. No pulmonary embolus. 2. Low lung volumes and small left lung base consolidation. This is likely atelectasis though underly ing infection is not excluded. Reviewed by: Mallika Luciano MD on 02/07/2022 7:45 PM PDT Approved by: Mallika Luciano MD on 02/07/2022 7:45 PM PDT Station ID: [id number]
[2022-02-07] MEDS ORDERED: FUROSEMIDE 20 MG TABLET PO STA (20:36)
[2022-02-07 21:04] VITALS: BP 145/100
== END 2022-02-07 21:18 | disposition home or self-care (01) ==
LOC: ED 17:28
DX: O90.89 Other complications of the puerperium, not elsewhere classified (principal); R07.1 Chest pain on breathing; R07.81 Pleurodynia; O99.335 Smoking (tobacco) complicating the puerperium; F17.200 Nicotine dependence, unspecified, uncomplicated; Z20.822 Contact with and (suspected) exposure to COVID-19
CPT/HCPCS: 36415; 71045; 71275; 80053; 81001; 83690; 83735; 83880; 84100; 84484; 85025; 85379; 87635; 93005; 93971; 96361; 96374; 99284; A9270; J1170; Q9967; 81003; 87086

== ENCOUNTER 2022-02-19 08:00 | Outpatient (CLI) | payer MEDICAID ==
[2022-02-19 10:12] LABS: BILIRUBIN,URINE NEGATIVE (NEGATIVE); GLUCOSE, URINE (UA) NEGATIVE (NEGATIVE); KETONES,URINE (UA) NEGATIVE (NEGATIVE); LEUKOCYTE ESTERASE, URINE NEGATIVE (NEGATIVE); NITRITE,URINE NEGATIVE (NEGATIVE); OCCULT BLOOD,URINE NEGATIVE (NEGATIVE); PROTEIN,URINE NEGATIVE (NEGATIVE); UROBILINOGEN,URINE 0.2 (NORMAL) E.U./dL (NORMAL)
[2022-02-19 10:13] LABS: CLARITY,URINE CLEAR (CLEAR)
[2022-02-19 11:01] LABS: BACTERIA,URINE Rare /HPF (None Seen); RBC,URINE 0-5 /HPF (0-5); SQUAMOUS EPITHELIAL CELL,UR RARE Squamous (<= Few); WBC,URINE 0-3 /HPF (0-5)
== END 2022-02-19 23:59 | disposition home or self-care (01) ==
LOC: LAB.WC 08:00
PROVIDERS: ATTEND Obstetrics & Gynecology
DX: R30.0 Dysuria (principal)
CPT/HCPCS: 81001; 87086

== ENCOUNTER 2022-03-15 12:41 | Emergency (ER) | payer MEDICAID ==
[2022-03-15 13:19] LABS: BASOPHILS % (AUTO) 0.5 %; EOSINOPHILS # (AUTO) 0.4 10^3/uL (0.0-0.7); HGB - HEMOGLOBIN 12.6 g/dL (12.0-16.0); LYMPHOCYTES # (AUTO) 2.6 10^3/uL (1.5-3.5); LYMPHOCYTES % (AUTO) 34.2 %; MEAN CORPUSCULAR HEMOGLOBIN 31.9 pg (27.0-31.0); MEAN CORPUSCULAR HGB CONC 34.1 g/dL (32.0-36.0); MEAN CORPUSCULAR VOLUME 93.7 fL (81.0-99.0); MEAN PLATELET VOLUME 10.4 fL (7.9-10.8); MONOCYTES # (AUTO) 0.5 10^3/uL (0.0-1.0); MONOCYTES % (AUTO) 6.1 %; NEUTROPHILS # (AUTO) 4.1 10^3/uL (1.5-6.6); NEUTROPHILS % (AUTO) 54.1 %; PLT - PLATELET COUNT 207 10^3/uL (130-450); RED BLOOD COUNT 3.95 10^6/uL (4.20-5.40); WHITE BLOOD COUNT 7.6 x10^3/uL (4.8-10.8)
[2022-03-15 13:32] LABS: ALBUMIN 4.3 g/dL (3.2-5.5); ALBUMIN/GLOBULIN RATIO 1.3 (1.0-2.2); BILIRUBIN,TOTAL 0.4 mg/dL (0.2-1.0); CALCIUM 9.7 mg/dL (8.5-10.3); CREATININE 0.7 mg/dL (0.4-1.0); POTASSIUM 3.6 mmol/L (3.5-5.0); TOTAL PROTEIN 7.5 g/dL (6.7-8.2)
--- NOTE | 2022-03-15 13:47 | ED Physician Documentation ---
PD HPI FEMALE - Stated complaint Stated Complaint: SWELLING/ - Chief complaint Chief Complaint: Abd Pain - History obtained from History obtained from: Patient - History of Present Illness Timing - onset: How many days ago (2) Timing - duration: Days (2) Timing - details: Gradual onset Associated symptoms: Vaginal bleeding (mild spotting blood yesterday with lower cramps. S/P c-sec 02/04/22 and had been healing okay. Has some redness/tender/swelling of skin just above the suture line for 2 days, increasing.). 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 - Present Medications Home Medications: Ambulatory Orders Medication Instructions Recorded Confirmed Ferrous Sulfate 325 mg PO DAILY 03/15/22 03/15/22 HYDROcod/ACETAM 5/325 [[place] 5/325] 1 ea PO Q6H PRN #12 tablet 03/15/22 Pnv No.95/Ferrous Fum/Folic AC 1 each PO DAILY 03/15/22 03/15/22 [ Tablet] Sertraline HCl 150 mg PO DAILY 03/15/22 03/15/22 cephALEXin [Keflex] 500 mg PO QID 5 Days #20 cap 03/15/22 - Allergies Allergies/Adverse Reactions: Allergies Allergy/AdvReac Type Severity Reaction Status Date / Time droperidol Allergy Severe Hives Verified 03/15/22 12:48 Phenothiazines Allergy Severe Hives Verified 03/15/22 12:48 Serotonin 5HT-3 Antagonists Allergy Severe Hives Verified 03/15/22 12:48 - Social History Does the pt smoke?: Yes Smoking Status: Current every day smoker Does the pt drink ETOH?: Yes Does the pt have substance abuse?: No - Immunizations Immunizations are current?: Yes - POLST Patient has POLST: No PD ED PE NORMAL - Vitals Vital signs reviewed: Yes - General General: Alert and oriented X 3, No acute distress, Well developed/nourished - Abdomen Abdomen: Normal bowel sounds, Soft, Non distended, No organomegaly, Other (soft tissue tender just above the healing suture line. Some swelling, warmth and redness uniformly. Below line is normal. Bedside US shows inflammation without fluid collection. Deeper palpation of abd not tender. ) - Female Female : Deferred Results - Vitals Vitals: Vital Signs - 24 hr 03/15/22 03/15/22 12:44 13:51 Temperature 36.5 C Heart Rate 89 81 Respiratory 16 17 Rate Blood Pressure 138/93 H 125/79 O2 Saturation 98 100 Oxygen O2 Source Room air - Labs Labs: Laboratory Tests 03/15/22 03/15/22 03/15/22 13:12 13:12 13:12 WBC 7.6 RBC 3.95 L Hgb 12.6 Hct 37.0 MCV 93.7 MCH 31.9 H MCHC 34.1 RDW 12.0 Plt Count 207 MPV 10.4 Neut # (Auto) 4.1 Lymph # (Auto) 2.6 [place] # (Auto) 0.5 Eos # (Auto) 0.4 Baso # (Auto) 0.0 Absolute Nucleated RBC 0.00 Nucleated RBC % 0.0 Sodium 139 Potassium 3.6 Chloride 103 Carbon Dioxide 26 Anion Gap 10.0 BUN 7 Creatinine 0.7 Estimated GFR (MDRD) 99 Glucose 99 Lactic Acid 0.9 Calcium 9.7 Total Bilirubin 0.4 AST 21 ALT 21 Alkaline Phosphatase 77 Total Protein 7.5 Albumin 4.3 Globulin 3.2 Albumin/Globulin Ratio 1.3 Lipase 30 HCG, Quant Urine Color Urine Clarity Urine pH Ur Specific [place] Urine Protein Urine Glucose (UA) Urine Ketones Urine Occult Blood Urine Nitrite Urine Bilirubin Urine Urobilinogen Ur Leukocyte Esterase Ur Microscopic Review Urine Culture Comments 03/15/22 03/15/22 13:12 13:47 WBC RBC Hgb Hct MCV MCH MCHC RDW Plt Count MPV Neut # (Auto) Lymph # (Auto) [place] # (Auto) Eos # (Auto) Baso # (Auto) Absolute Nucleated RBC Nucleated RBC % Sodium Potassium Chloride Carbon Dioxide Anion Gap BUN Creatinine Estimated GFR (MDRD) Glucose Lactic Acid Calcium Total Bilirubin AST ALT Alkaline Phosphatase Total Protein Albumin Globulin Albumin/Globulin Ratio Lipase HCG, Quant 4.20 Urine Color YELLOW Urine Clarity CLEAR Urine pH 7.0 Ur Specific [place] <=1.005 Urine Protein NEGATIVE Urine Glucose (UA) NEGATIVE Urine Ketones NEGATIVE Urine Occult Blood NEGATIVE Urine Nitrite NEGATIVE Urine Bilirubin NEGATIVE Urine Urobilinogen 0.2 (NORMAL) Ur Leukocyte Esterase NEGATIVE Ur Microscopic Review NOT INDICATED Urine Culture Comments NOT INDICATED PD MEDICAL DECISION MAKING - ED course Complexity details: considered differential (warm, red, swelling above suture line. Bedside U/S showing swelling but no fluid collection. Will treat as cellulitis. cramps/spotting bleeding could be first period 5 weeks post c-sec. Not really hurting now per pt. ), d/w patient Departure - Departure Disposition: 01 Home, Self Care Clinical Impression: Wound infection after surgery Cellulitis Qualifiers: Site of cellulitis: trunk Site of cellulitis of trunk: abdominal wall Qualified Code(s): L03.311 - Cellulitis of abdominal wall Condition: Stable Instructions: ED Infec Skin Cellulitis Follow-Up: Scooby Shafer MD [Provider Admit Priv/Credential] - Prescriptions: cephALEXin [Keflex] 500 mg PO QID 5 Days #20 cap HYDROcod/ACETAM 5/325 [[place] 5/325] 1 ea PO Q6H PRN #12 tablet PRN Reason: Pain Comments: This does appear like a skin infection around the wound. I do not see any signs of fluid collected underneath to suggest abscess. I would treat this with cephalexin 4 times daily for the next 5 days. You can add anti-inflammatory such as naproxen or ibuprofen 2-3 times daily as well. To that add Tylenol every 4 hours if needed for pain or hydrocodone/acetaminophen if needed for worse pain. I would expect this to be improving over the next 2 to 3 days. Follow-up with your postoperative check as planned this coming week. Return if worsening overall. Is sent your prescriptions to [facility] pharmacy. I am prescribing a short course of narcotic pain medication for you. These are potentially dangerous and addictive medications that should be used carefully. These medications may constipate you. Take an [id number] stool softener such as docusate twice daily with plenty of water while taking these medications. If you go 24 hours without a bowel movement, take [id number] MiraLAX, per package instructions. Do not drink or drive while taking these medications. If you received narcotic or sedating medications while in the emergency department do not drive for 24 hours. Store this medication in a safe, secure place and out of reach of children. It is a violation of federal law to give or sell this medication to another person or to use in a manner other than prescribed. The ED will not refill narcotic prescriptions, including prescriptions lost or stolen. You can dispose of unwanted medications at the [facility]'s office or at several pharmacies such as [facility]. Discharge Date/Time: 03/15/22 15:00
[2022-03-15 13:52] VITALS: BP 125/79
[2022-03-15 14:14] LABS: BILIRUBIN,URINE NEGATIVE (NEGATIVE); GLUCOSE, URINE (UA) NEGATIVE (NEGATIVE); KETONES,URINE (UA) NEGATIVE (NEGATIVE); LEUKOCYTE ESTERASE, URINE NEGATIVE (NEGATIVE); NITRITE,URINE NEGATIVE (NEGATIVE); OCCULT BLOOD,URINE NEGATIVE (NEGATIVE); PROTEIN,URINE NEGATIVE (NEGATIVE); UROBILINOGEN,URINE 0.2 (NORMAL) E.U./dL (NORMAL)
[2022-03-15] MEDS ORDERED: NAPROXEN 250 MG TABLET PO STA (14:18)
[2022-03-15] MEDS ORDERED: cephALEXin 250 MG CAPSULE PO STA (14:18)
[2022-03-15 14:29] LABS: CLARITY,URINE CLEAR (CLEAR)
== END 2022-03-15 15:00 | disposition home or self-care (01) ==
LOC: ED 12:41
DX: O86.02 Infection of obstetric surgical wound, deep incisional site (principal); O86.19 Other infection of genital tract following delivery; L03.311 Cellulitis of abdominal wall; F17.200 Nicotine dependence, unspecified, uncomplicated
CPT/HCPCS: 36415; 80053; 81003; 83605; 83690; 84702; 85025; 99283; A9270; 81001; 87086

== ENCOUNTER 2022-04-15 19:16 | Emergency (ER) | payer MEDICAID ==
[2022-04-15 19:30] VITALS: BP 132/89
[2022-04-15] MEDS ORDERED: ceFAZolin 1 GM VIAL IM STA (19:38)
--- NOTE | 2022-04-15 19:40 | ED Physician Documentation ---
History of Present Illness - Stated complaint Stated Complaint: FEMALE - Chief complaint Chief Complaint: General - History obtained from History obtained from: Patient - Additonal information Additional information: She is breast-feeding 2-month-old, twins. She developed some left breast pain earlier today, thought it was a clogged duct but now has spreading redness and is starting to feel mildly ill. No fevers or chills. 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 - Present Medications Home Medications: Ambulatory Orders Medication Instructions Recorded Confirmed Ferrous Sulfate 325 mg PO DAILY 03/15/22 03/15/22 HYDROcod/ACETAM 5/325 [[place] 5/325] 1 ea PO Q6H PRN #12 tablet 03/15/22 Pnv No.95/Ferrous Fum/Folic AC 1 each PO DAILY 03/15/22 03/15/22 [ Tablet] Sertraline HCl 150 mg PO DAILY 03/15/22 03/15/22 cephALEXin [Keflex] 500 mg PO QID 5 Days #20 cap 03/15/22 cephALEXin [Keflex] 500 mg PO Q6H #28 cap 04/15/22 - Allergies Allergies/Adverse Reactions: Allergies Allergy/AdvReac Type Severity Reaction Status Date / Time droperidol Allergy Severe Hives Verified 04/15/22 19:30 Phenothiazines Allergy Severe Hives Verified 04/15/22 19:30 Serotonin 5HT-3 Antagonists Allergy Severe Hives Verified 04/15/22 19:30 - Social History Does the pt smoke?: Yes Smoking Status: Current every day smoker Does the pt drink ETOH?: Yes Does the pt have substance abuse?: No - Immunizations Immunizations are current?: Yes - POLST Patient has POLST: No PD ED PE NORMAL - Vitals Vital signs reviewed: Yes - General General: Alert and oriented X 3, No acute distress - HEENT HEENT: PERRL, EOMI - Neck Neck: Supple, no meningeal sign, No bony TTP - Derm Derm: Other (Exam done with Marcelina Walter sauceda present and chaperoning. She has mas titis at 6:00 just above the areola on the left breast with some spreading cellulitis upward. Bedside ultrasound demonstrates no abscess.) - Neuro Neuro: Alert and oriented X 3, Normal speech Results - Vitals Vitals: Vital Signs - 24 hr 04/15/22 19:27 Temperature 36.7 C Heart Rate 94 Respiratory 14 Rate Blood Pressure 132/89 H O2 Saturation 100 Oxygen O2 Source Room air Departure - Departure Disposition: 01 Home, Self Care Clinical Impression: Mastitis in obstetric context, antepartum Condition: Good Record reviewed to determine appropriate education?: Yes Instructions: ED Breast Infec [facility]: [facility] [Provider Group] Prescriptions: cephALEXin [Keflex] 500 mg PO Q6H #28 cap Comments: I sent the prescription electronically to [facility] in [place]. Return if you worsen. Otherwise plan to follow-up with Dr. Miles the next few days for recheck.
== END 2022-04-15 20:00 | disposition home or self-care (01) ==
LOC: ED 19:16
DX: N61.0 Mastitis without abscess (principal); F17.200 Nicotine dependence, unspecified, uncomplicated
CPT/HCPCS: 96372; 99283

== ENCOUNTER 2023-01-18 21:51 | Emergency (ER) | payer MEDICAID ==
[2023-01-18 22:04] VITALS: BP 140/80
[2023-01-18 22:22] LABS: BILIRUBIN,URINE NEGATIVE (NEGATIVE); GLUCOSE, URINE (UA) NEGATIVE (NEGATIVE); KETONES,URINE (UA) NEGATIVE (NEGATIVE); LEUKOCYTE ESTERASE, URINE LARGE (NEGATIVE); NITRITE,URINE NEGATIVE (NEGATIVE); OCCULT BLOOD,URINE LARGE (NEGATIVE); PH,URINE 6.5 PH (5.0-7.5); PROTEIN,URINE TRACE mg/dL (NEGATIVE); UROBILINOGEN,URINE 0.2 (NORMAL) E.U./dL (NORMAL)
[2023-01-18 22:24] LABS: CLARITY,URINE CLOUDY (CLEAR); HCG UR QUAL NEGATIVE
[2023-01-18 22:29] LABS: BACTERIA,URINE Few /HPF (None Seen); SQUAMOUS EPITHELIAL CELL,UR RARE Squamous (<= Few); WBC,URINE >25 /HPF (0-5)
[2023-01-18] MEDS ORDERED: LIDOCAINE 1% 2 ML VIAL MC ONE (22:43)
[2023-01-18] MEDS ORDERED: HYDROcod/ACETAM 5/325 MG TABLET PO STA (22:43)
[2023-01-18] MEDS ORDERED: cefTRIAXone 1 GM VIAL IM STA (22:43)
--- NOTE | 2023-01-18 22:43 | ED Physician Documentation ---
History of Present Illness - Stated complaint Stated Complaint: ABD PX - Chief complaint Chief Complaint: Abd Pain - Additonal information Additional information: Patient 27-year-old female presenting to the emergency department with chief co mplaint dysuria. Reports dysuria with red-tinged urine with passage of small clots that began this evening. Denies any fever, chills, flank pain, nausea, vomiting. Was seen here approximately 1 month ago with similar symptoms and treated with Rocephin and cefdinir. Review of Systems Constitutional: denies: Fever Eyes: denies: Loss of vision Ears: denies: Loss of hearing Nose: denies: Rhinorrhea / runny nose Throat: denies: Dental pain / toothache Cardiac: denies: Chest pain / pressure Respiratory: denies: Dyspnea GI: denies: Abdominal Pain : reports: Dysuria, Hematuria PD PAST MEDICAL HISTORY - Past Medical History Past Medical History: Yes Cardiovascular: None Respiratory: None Neuro: None Endocrine/Autoimmune: None GI: None ASSOCIATE CREATIVE DIRECTOR: None : None, Other HEENT: None Psych: Depression, Anxiety Musculoskeletal: None Derm: None Other Past Medical History: kidney ifxn - Past Surgical History Past Surgical History: Yes General: Appendectomy /ASSOCIATE CREATIVE DIRECTOR: section - Present Medications Home Medications: Ambulatory Orders Medication Instructions Recorded Confirmed Ferrous Sulfate 325 mg PO DAILY 03/15/22 03/15/22 HYDROcod/ACETAM 5/325 [[place] 5/325] 1 ea PO Q6H PRN #12 tablet 03/15/22 Pnv No.95/Ferrous Fum/Folic AC 1 each PO DAILY 03/15/22 03/15/22 [ Tablet] Sertraline HCl 200 mg PO DAILY 03/15/22 12/27/22 cephALEXin [Keflex] 500 mg PO QID 5 Days #20 cap 03/15/22 Cefdinir 300 mg PO BID #20 cap 12/27/22 Gabapentin [Neurontin] 200 mg PO TID 12/27/22 12/27/22 HYDROcod/ACETAM 5/325 [[place] 5/325] 1 - 2 tab PO Q6H PRN #10 tablet 12/27/22 HYDROcod/ACETAM 5/325 [[place] 5/325] 1 - 2 ea PO Q6H PRN #14 tablet 01/18/23 cephALEXin [Keflex] 500 mg PO Q6H #20 cap 01/18/23 - Allergies Allergies/Adverse Reactions: Allergies Allergy/AdvReac Type Severity Reaction Status Date / Time droperidol Allergy Severe Hives Verified 01/18/23 21:57 Phenothiazines Allergy Severe Hives Verified 01/18/23 21:57 Serotonin 5HT-3 Antagonists Allergy Severe Hives Verified 01/18/23 21:57 - Social History Does the pt smoke?: Yes Smoking Status: Current every day smoker Does the pt drink ETOH?: Yes Does the pt have substance abuse?: No - Immunizations Immunizations are current?: Yes - POLST Patient has POLST: No PD ED PE NORMAL - Vitals Vital signs reviewed: Yes - General General: Alert and oriented X 3 - HEENT HEENT: Atraumatic, PERRL - Neck Neck: Supple, no meningeal sign - Cardiac Cardiac: RRR - Respiratory Respiratory: No respiratory distress - Abdomen Abdomen: Normal bowel sounds - Female Female : Deferred - Back Back: No CVA TTP, No spinal TTP - Derm Derm: Normal color - Extremities Extremities: No deformity, No edema Results - Vitals Vitals: Vital Signs - 24 hr 01/18/23 01/18/23 21:57 22:08 Temperature 36.6 C Heart Rate 100 Respiratory 16 18 Rate Blood Pressure 140/80 H O2 Saturation 100 98 Oxygen O2 Source Room air - Labs Labs: Laboratory Tests 01/18/23 22:13 Urine Color YELLOW Urine Clarity CLOUDY Urine pH 6.5 Ur Specific [place] <=1.005 Urine Protein TRACE Urine Glucose (UA) NEGATIVE Urine Ketones NEGATIVE Urine Occult Blood LARGE H Urine Nitrite NEGATIVE Urine Bilirubin NEGATIVE Urine Urobilinogen 0.2 (NORMAL) Ur Leukocyte Esterase LARGE H Urine RBC 11-25 H Urine WBC >25 H Ur Squamous Epith Cells RARE Squamous Urine Bacteria Few Ur Microscopic Review INDICATED Urine Culture Comments INDICATED Urine HCG, Qual NEGATIVE PD Medical Decision Making - ED course Complexity details: reviewed old records, d/w patient ED course: Patient 27-year-old female presenting to the emergency department with dysuria and hematuria. Afebrile, hemodynamically stable. Initial differential diagnosis included but not limited to UTI, pyelonephritis, nephrolithiasis. No CVA tenderness or unilateral flank pain that would be suggestive of kidney stone or pyelonephritis. Patient given dose of Rocephin in the emergency department. Culture from last month was reviewed which demonstrated E. coli that was fregoso susceptible. Will discharge on course Keflex. Patient provided medication for pain control. Encourage careful follow-up with primary care or return to the emergency department. Departure - Departure Disposition: 01 Home, Self Care Clinical Impression: Lower urinary tract infection Instructions: ED UTI Cystitis Female Prescriptions: cephALEXin [Keflex] 500 mg PO Q6H #20 cap HYDROcod/ACETAM 5/325 [[place] 5/325] 1 - 2 ea PO Q6H PRN #14 tablet PRN Reason: Pain Comments: Thank you for allowing us to care for you today at [facility]. Prescription sent electronically to [facility] in [place]. Today in the emergency department you are diagnosed with an acute urinary tract infection. I have written a prescription for an oral antibiotic known as Keflex. This was chosen after reviewing your previous urine culture. I have also written for medication for pain control. Please be aware that this medication is both sedating and habit-forming, it should not be used if you are operating a motor vehicle, using of machinery or you are the sole bulb grader of young children. I will be sending your urine for culture and further testing and if there is concern for antibiotic resistance we will contact you directly in the next few days. In the meantime it is important that you follow-up with your primary care doctor. I also recommend getting plenty of rest and drinking plenty of fluids over the course the next few days. If it anytime you develop any new or worsening symptoms please not hesitate to return. Discharge Date/Time: 01/18/23 23:03
--- NOTE | 2023-01-21 13:27 | ED Physician Documentation ---
ED Addendum - Addendum Addendum: 01/21/23 13:27 Urine positive for pansensitive E. coli. She is on Keflex which is appropriate.
== END 2023-01-18 23:03 | disposition home or self-care (01) ==
LOC: ED 21:51
DX: N39.0 Urinary tract infection, site not specified (principal); B96.20 Unspecified Escherichia coli [E. coli] as the cause of diseases classified elsewhere; F17.200 Nicotine dependence, unspecified, uncomplicated
CPT/HCPCS: 81001; 81025; 87086; 87181; 96372; 99283; A9270; 81003

== ENCOUNTER 2023-02-22 16:00 | Emergency (ER) | payer MEDICAID ==
[2023-02-22 16:46] LABS: BASOPHILS % (AUTO) 0.5 %; EOSINOPHILS # (AUTO) 0.1 10^3/uL (0.0-0.7); EOSINOPHILS % (AUTO) 1.7 %; HCT - HEMATOCRIT 38.5 % (37.0-47.0); HGB - HEMOGLOBIN 12.7 g/dL (12.0-16.0); LYMPHOCYTES # (AUTO) 2.6 10^3/uL (1.5-3.5); LYMPHOCYTES % (AUTO) 32.3 %; MEAN CORPUSCULAR VOLUME 93.9 fL (81.0-99.0); MEAN PLATELET VOLUME 10.1 fL (7.9-10.8); MONOCYTES # (AUTO) 0.6 10^3/uL (0.0-1.0); MONOCYTES % (AUTO) 6.9 %; NEUTROPHILS # (AUTO) 4.8 10^3/uL (1.5-6.6); NEUTROPHILS % (AUTO) 58.4 %; PLT - PLATELET COUNT 278 10^3/uL (130-450); RED CELL DISTRIBUTION WIDTH 12.7 % (12.0-15.0); WHITE BLOOD COUNT 8.1 x10^3/uL (4.8-10.8)
[2023-02-22 17:02] LABS: ALBUMIN 4.5 g/dL (3.2-5.5); ALBUMIN/GLOBULIN RATIO 1.4 (1.0-2.2); BILIRUBIN,TOTAL 0.3 mg/dL (0.2-1.0); CALCIUM 9.1 mg/dL (8.5-10.3); CREATININE 0.6 mg/dL (0.4-1.0); POTASSIUM 3.4 mmol/L (3.5-5.0); TOTAL PROTEIN 7.7 g/dL (6.7-8.2)
[2023-02-22] MEDS ORDERED: HYDROmorphone 1 MG/ML CARPUJECT IM STA (17:03)
--- NOTE | 2023-02-22 17:04 | ED Physician Documentation ---
PD HPI ABD PAIN - Stated complaint Stated Complaint: LT SIDE PX,FEMALE - Chief complaint Chief Complaint: Abd Pain - History obtained from History obtained from: Patient - Additional information Additional information: 27-year-old woman with recurrent pyelonephritis presents with sudden onset suprapubic and left flank pain starting today while having a bowel movement. She has no urinary complaints, no hematuria. Denies fevers. She wonders if she might have a kidney stone. She has no history of kidney stones. PD PAST MEDICAL HISTORY - Past Medical History Cardiovascular: None Respiratory: None Neuro: None Endocrine/Autoimmune: None GI: None HOSPICE NURSE: None : None, Other HEENT: None Psych: Depression, Anxiety Musculoskeletal: None Derm: None - Past Surgical History Past Surgical History: Yes General: Appendectomy /HOSPICE NURSE: section - Present Medications Home Medications: Ambulatory Orders Medication Instructions Recorded Confirmed Gabapentin [Neurontin] 200 mg PO TID 12/27/22 02/22/23 Buspirone HCl 7.5 mg PO DAILY 02/22/23 02/22/23 Sertraline HCl 150 mg PO DAILY 02/22/23 02/22/23 - Allergies Allergies/Adverse Reactions: Allergies Allergy/AdvReac Type Severity Reaction Status Date / Time droperidol Allergy Severe Hives Verified 01/18/23 21:57 Phenothiazines Allergy Severe Hives Verified 01/18/23 21:57 Serotonin 5HT-3 Antagonists Allergy Severe Hives Verified 01/18/23 21:57 - Social History Does the pt smoke?: Yes Smoking Status: Current every day smoker Does the pt drink ETOH?: Yes Does the pt have substance abuse?: No - Immunizations Immunizations are current?: Yes - POLST Patient has POLST: No PD ED PE NORMAL - Vitals Vital signs reviewed: Yes - General General: Alert and oriented X 3, No acute distress - Abdomen Abdomen: Normal bowel sounds, Soft, Other (Tender the left flank and left lower quadrant without surgical signs) - Neuro Neuro: Alert and oriented X 3, Normal speech Results - Vitals Vitals: Vital Signs - 24 hr 02/22/23 02/22/23 16:23 18:32 Temperature 37.1 C Heart Rate 87 78 Respiratory 20 16 Rate Blood Pressure 131/94 H 124/68 O2 Saturation 99 98 Oxygen O2 Source Room air - Labs Labs: Laboratory Tests 02/22/23 02/22/23 02/22/23 16:30 16:30 16:39 WBC 8.1 RBC 4.10 L Hgb 12.7 Hct 38.5 MCV 93.9 MCH 31.0 MCHC 33.0 RDW 12.7 Plt Count 278 MPV 10.1 Neut # (Auto) 4.8 Lymph # (Auto) 2.6 [place] # (Auto) 0.6 Eos # (Auto) 0.1 Baso # (Auto) 0.0 Absolute Nucleated RBC 0.00 Nucleated RBC % 0.0 Sodium Potassium Chloride Carbon Dioxide Anion Gap BUN Creatinine Estimated GFR (MDRD) Glucose Calcium Total Bilirubin AST ALT Alkaline Phosphatase Total Protein Albumin Globulin Albumin/Globulin Ratio Lipase Urine Color LIGHT YELLOW Urine Clarity CLEAR Urine pH 6.5 Ur Specific [place] 1.010 Urine Protein NEGATIVE Urine Glucose (UA) NEGATIVE Urine Ketones NEGATIVE Urine Occult Blood NEGATIVE Urine Nitrite NEGATIVE Urine Bilirubin NEGATIVE Urine Urobilinogen 0.2 (NORMAL) Ur Leukocyte Esterase NEGATIVE Ur Microscopic Review NOT INDICATED Urine Culture Comments NOT INDICATED Urine HCG, Qual NEGATIVE 02/22/23 16:39 WBC RBC Hgb Hct MCV MCH MCHC RDW Plt Count MPV Neut # (Auto) Lymph # (Auto) [place] # (Auto) Eos # (Auto) Baso # (Auto) Absolute Nucleated RBC Nucleated RBC % Sodium 139 Potassium 3.4 L Chloride 108 Carbon Dioxide 26 Anion Gap 5.0 L BUN 5 L Creatinine 0.6 Estimated GFR (MDRD) 118 Glucose 95 Calcium 9.1 Total Bilirubin 0.3 AST 15 ALT 13 Alkaline Phosphatase 57 Total Protein 7.7 Albumin 4.5 Globulin 3.2 Albumin/Globulin Ratio 1.4 Lipase 30 Urine Color Urine Clarity Urine pH Ur Specific Eva Urine Protein Urine Glucose (UA) Urine Ketones Urine Occult Blood Urine Nitrite Urine Bilirubin Urine Urobilinogen Ur Leukocyte Esterase Ur Microscopic Review Urine Culture Comments Urine HCG, Qual - Rads (name of study) CT KUB Relevant Findings:: Final report received, EMP independent interpretation of test PD Medical Decision Making - ED course ED course: 27-year-old woman presents with left flank pain. It was relatively sudden onset and during a bowel movement. Work-up in the emergency department consisting of CBC, CMP, urinalysis, test, and CT without contrast were negative for acute or worrisome findings. She appears well and nontender on reexamination after 1 mg of Dilaudid IM. She was given close return precautions. Does not seem like an infectious issue given the relatively sudden onset. Departure - Departure Disposition: 01 Home, Self Care Clinical Impression: Left flank pain Condition: Good Record reviewed to determine appropriate education?: Yes Instructions: ED Abdominal Pain Female Non-Specific Abdominal Pain Comments: As discussed the CAT scan, your lab work and urinalysis were all normal. So the cause of your pain is not quite clear. If not better in the next 24 hours or if you develop new or worsening symptoms please return for reevaluation.
[2023-02-22 18:07] LABS: BILIRUBIN,URINE NEGATIVE (NEGATIVE); GLUCOSE, URINE (UA) NEGATIVE (NEGATIVE); KETONES,URINE (UA) NEGATIVE (NEGATIVE); LEUKOCYTE ESTERASE, URINE NEGATIVE (NEGATIVE); NITRITE,URINE NEGATIVE (NEGATIVE); OCCULT BLOOD,URINE NEGATIVE (NEGATIVE); PH,URINE 6.5 PH (5.0-7.5); PROTEIN,URINE NEGATIVE (NEGATIVE); UROBILINOGEN,URINE 0.2 (NORMAL) E.U./dL (NORMAL)
[2023-02-22 18:09] LABS: CLARITY,URINE CLEAR (CLEAR); HCG UR QUAL NEGATIVE
--- NOTE | 2023-02-22 18:50 | CT Report ---
PROCEDURE: ABDOMEN/PELVIS WO INDICATIONS: l flank pain TECHNIQUE: A CT scan of the abdomen and pelvis was performed without the use of intravenous contrast. Images we re recorded and evaluated at appropriate window settings. Reformats: coronal and sagittal. For radiat ion dose reduction, the following was used: automated exposure control, adjustment of mA and/or kV ac cording to patient size. COMPARISON: None. FINDINGS: Image quality: Excellent. Lung bases and heart: Unremarkable. Liver: No solid mass. Gallbladder and biliary tree: Normal gallbladder. Spleen: No splenomegaly. Pancreas: No pancreatic ductal dilation. Adrenals: No adrenal nodule. Kidneys and ureters: No hydronephrosis. No renal cystic lesion which requires follow up. No solid mas s. Bowel and peritoneum: No bowel distension. No pathologic free fluid. Lymph nodes: No central or retroperitoneal adenopathy. Vessels: No infrarenal aortic aneurysm. PELVIS Reproductive organs: Unremarkable. Bladder: No wall thickness, accounting for underdistention. Pelvic lymph nodes: No pelvic adenopathy by size criteria. Bones: No aggressive osseous abnormality. Other: No significant ventral or inguinal hernia. IMPRESSION: No hydronephrosis or obstructing renal stone. Reviewed by: Wu Cohen on 02/22/2023 5:49 PM ENEDELIA Approved by: Wu Cohen on 02/22/2023 5:49 PM AKANDER Station ID: [id number]
[2023-02-22] MEDS ORDERED: oxyCODONE/ACET 5/325 Prepack 4 PO STA (18:59)
[2023-02-22 19:12] VITALS: BP 137/85
== END 2023-02-22 19:28 | disposition home or self-care (01) ==
LOC: ED 16:00
DX: R10.32 Left lower quadrant pain (principal); F17.200 Nicotine dependence, unspecified, uncomplicated
CPT/HCPCS: 36415; 74176; 80053; 81003; 81025; 83690; 85025; 96372; 99284; J1170; 81001; 87086

== ENCOUNTER 2023-03-07 15:06 | Outpatient (CLI) | payer MEDICAID ==
--- NOTE | 2023-03-07 18:12 | Ultrasound Report ---
PROCEDURE: Pelvic w/Transvaginal INDICATIONS: PELVIC PAIN TECHNIQUE: Real-time scanning was performed of the pelvic organs, with image documentation. Additional endovagi nal scanning was necessary due to incomplete visualization of the adnexal and endometrial structures by transabdominal scanning. COMPARISON: 07/20/2020 FINDINGS: Uterus: Uterus is retroverted and normal in size at 8.2 x 4.2 x 5.5 cm. The myometrium is homogeneo us. The endometrium measures 2 mm in combined thickness. No focal intrauterine abnormalities. Macario rosalind section scar noted over the anterior lower uterine segment. Ovaries: The right ovary measures 3.9 x 2.3 x 1.9 cm, with a calculated ovarian volume of 9.1 cc. T he left ovary measures 3.1 x 1.3 x 1.3 cm, with a calculated ovarian volume of 2.6 cc. The ovaries h ave a normal sonographic appearance. Less than 12 follicles can be seen in each ovary. No adnexal m asses are seen. No cystic lesions measuring greater than 3 cm. Simple right ovarian cyst versus folli eula measuring 1.6 centimeters in maximum dimension. Other: No pathologic free abdominal or pelvic fluid. IMPRESSION: Pelvis without acute sonographic abnormalities. No abnormalities identified to explain patient's symp toms. Reviewed by: Emil De La Cruz MD on 03/07/2023 5:10 PM ENEDELIA Approved by: Emil De La Cruz MD on 03/07/2023 5:10 PM ENEDELIA Station ID: [id number]
== END 2023-03-07 15:07 | disposition home or self-care (01) ==
LOC: DI 15:06
PROVIDERS: ATTEND Nurse Practitioner
DX: R10.2 Pelvic and perineal pain (principal)

== ENCOUNTER 2023-03-18 16:49 | Outpatient (CLI) | payer MEDICAID ==
--- NOTE | 2023-03-20 10:54 | MRI Report ---
PROCEDURE: PELVIS W/WO INDICATIONS: PELVIC PAIN CONTRAST: gadavist 5.8ml TECHNIQUE: Coronal ultra fast SE, sagittal breath-hold T2 FSE; axial T1 FSE with and without fat saturation thro ugh the pelvis. Optional long- and short-axis uterine nonbreath-hold T2 FSE through the uterus. Sag ittal or axial dynamic ultra fast GE during administration of contrast. Post-contrast axial or coron al ultra fast GE / 2-D spoiled GE with fat saturation from the iliac crests to the symphysis. Option al diffusion weighted imaging and ADC may be performed. COMPARISON: Pelvic ultrasound 03/07/2023. CT abdomen pelvis without contrast 02/22/2023 FINDINGS: Uterus: Uterus is normal in size. Endometrium is normal in thickness. Junctional zone is normal in thickness at 12 mm or less. A scar is present. Adnexa: Both ovaries are normal in size. A 9 mm structure within the right ovary with intrinsic T1 h yperintensity and corresponding T2 hypointensity is present. Urinary system: Bladder wall is normal in thickness. Distal ureters are non distended. Nodes and vessels: No pelvic or inguinal adenopathy by size criteria. Iliac vessels are normal in s ize. Bowel and peritoneum: No pathologic free pelvic fluid. Inferior colon and small bowel loops are nor mal in caliber. IMPRESSION: 1. A 9 mm structure in the right ovary has signal characteristics favoring a tiny endometrioma, howev er a hemorrhagic functional cyst is also possible. 2. Otherwise unremarkable MR appearance of the ovaries. Reviewed by: Shashi Burnett MD on 03/20/2023 10:53 AM PDT Approved by: Shashi Burnett MD on 03/20/2023 10:53 AM PDT Station ID: [id number]
== END 2023-03-18 16:50 | disposition home or self-care (01) ==
LOC: DI 16:49
PROVIDERS: ATTEND Nurse Practitioner
DX: N83.9 Noninflammatory disorder of ovary, fallopian tube and broad ligament, unspecified (principal); R10.2 Pelvic and perineal pain
CPT/HCPCS: 72197; A9585

== ENCOUNTER 2023-06-11 08:00 | Outpatient (CLI) | payer MEDICAID | END 2023-06-11 23:59 | disposition home or self-care (01) | LOC: LAB.N 08:00 | PROVIDERS: ATTEND Family Medicine | DX: N39.0 Urinary tract infection, site not specified (principal) | CPT/HCPCS: 87086 ==

== ENCOUNTER 2023-07-01 16:41 | Emergency (ER) | payer MEDICAID ==
[2023-07-01 17:27] VITALS: BP 135/80; O2SAT 97
--- NOTE | 2023-07-01 21:29 | ED Physician Documentation ---
History of Present Illness - Stated complaint Stated Complaint: LT ARM NUMBNESS/TINGLING - Chief complaint Chief Complaint: Ext Problem - History obtained from History obtained from: Patient - Additonal information Additional information: 28-year-old woman with history of depression, anxiety, presents with left wrist and tingling of left third finger radiating up the arm. Patient also noticed increased swelling to DIP joint of the third finger. Denies any trauma but states she was wearing a ring that she had to take off with soap. PD PAST MEDICAL HISTORY - Past Medical History Past Medical History: Yes Cardiovascular: None Respiratory: None Neuro: None Endocrine/Autoimmune: None GI: None INSTRUMENTATION SPECIALIST: None : None, Other HEENT: None Psych: Depression, Anxiety Musculoskeletal: None Derm: None - Past Surgical History Past Surgical History: Yes General: Appendectomy /INSTRUMENTATION SPECIALIST: section - Present Medications Home Medications: Ambulatory Orders Medication Instructions Recorded Confirmed Gabapentin [Neurontin] 200 mg PO TID 12/27/22 02/22/23 Buspirone HCl 7.5 mg PO DAILY 02/22/23 02/22/23 Sertraline HCl 150 mg PO DAILY 02/22/23 02/22/23 - Allergies Allergies/Adverse Reactions: Allergies Allergy/AdvReac Type Severity Reaction Status Date / Time droperidol Allergy Severe Hives Verified 07/01/23 17:24 Phenothiazines Allergy Severe Hives Verified 07/01/23 17:24 Serotonin 5HT-3 Antagonists Allergy Severe Hives Verified 07/01/23 17:24 - Social History Does the pt smoke?: Yes Smoking Status: Current every day smoker Does the pt drink ETOH?: Yes Does the pt have substance abuse?: No - Immunizations Immunizations are current?: Yes - POLST Patient has POLST: No PD ED PE NORMAL - Vitals Vital signs reviewed: Yes - General General: Alert and oriented X 3, No acute distress, Well developed/nourished - HEENT HEENT: Atraumatic, PERRL, EOMI - Derm Derm: Normal color, Warm and dry - Extremities Extremities: Other (L wrist ttp along median nerve. tender with rom. tinel test +. 2+ radial pulse LUE) Results - Vitals Vitals: Vital Signs - 24 hr 07/01/23 07/01/23 17:24 19:54 Temperature 36.5 C Heart Rate 86 Respiratory 16 17 Rate Blood Pressure 135/80 H O2 Saturation 97 Oxygen O2 Source Room air PD Medical Decision Making - ED course ED course: 28yF with two young children p/w L wrist pain likely carpal tunnel related to repetitive use injury. wrist brace applied and symptom care discussed. plan to f/u with pcp. return precautions given. Departure - Departure Disposition: Home, Self Care Clinical Impression: Neuropathy Condition: Stable Instructions: ED Carpal Tunnel Comments: You were seen in the emergency department for neuropathy, likely related to repetitive use injury. Wear your wrist brace as often as possible to promote nerve healing. Please follow-up with your primary care provider and return to the emergency department if you have any new or worsening symptoms or other concerns. Forms: PCP List Discharge Date/Time: 07/01/23 21:52
[2023-07-01] MEDS: oxyCODONE/ACET 5/325 Prepack 4 PO STA (21:30)
== END 2023-07-01 21:52 | disposition home or self-care (01) ==
LOC: ED 16:41
DX: G62.9 Polyneuropathy, unspecified (principal); F17.200 Nicotine dependence, unspecified, uncomplicated; Z79.899 Other long term (current) drug therapy
CPT/HCPCS: 99282

== ENCOUNTER 2023-09-24 08:00 | Outpatient (CLI) | payer MEDICAID ==
[2023-09-24 18:25] LABS: BILIRUBIN,URINE NEGATIVE (NEGATIVE); CLARITY,URINE HAZY (CLEAR); GLUCOSE, URINE (UA) NEGATIVE (NEGATIVE); KETONES,URINE (UA) TRACE mg/dL (NEGATIVE); LEUKOCYTE ESTERASE, URINE SMALL (NEGATIVE); NITRITE,URINE NEGATIVE (NEGATIVE); OCCULT BLOOD,URINE NEGATIVE (NEGATIVE); PROTEIN,URINE NEGATIVE (NEGATIVE); UROBILINOGEN,URINE 0.2 (NORMAL) E.U./dL (NORMAL)
[2023-09-24 18:34] LABS: BACTERIA,URINE Moderate /HPF (None Seen); RBC,URINE 0-5 /HPF (0-5); SQUAMOUS EPITHELIAL CELL,UR FEW Squamous (<= Few); WBC,URINE >25 /HPF (0-5)
== END 2023-09-24 23:59 | disposition home or self-care (01) ==
LOC: LAB.WCP 08:00
PROVIDERS: ATTEND Nurse Practitioner
DX: N39.0 Urinary tract infection, site not specified (principal)
CPT/HCPCS: 81001; 87077; 87086; 87181

== ENCOUNTER 2023-11-17 16:41 | Emergency (ER) | payer MEDICAID ==
[2023-11-17 16:54] VITALS: BP 133/80; O2SAT 100
--- NOTE | 2023-11-17 17:02 | ED Physician Documentation ---
PD HPI LOWER EXT INJURY - Stated complaint Stated Complaint: RT ANKLE INJ - Chief complaint Chief Complaint: Trauma Ext - Additional information Additional information: Healthy 28-year-old got up in the middle of the night to give her twins a bottle. Had some objects moved by the foot of her bed and struck her right ankle and foot against the objects causing injury. Has been walking on it since then noticed it was black and blue and swollen this morning. No other injuries. 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: None : None, Other HEENT: None Psych: Depression, Anxiety Musculoskeletal: None Derm: None - Past Surgical History Past Surgical History: Yes General: Appendectomy /MODERN AND CONTEMPORARY ART CURATOR: section - Present Medications Home Medications: Ambulatory Orders Medication Instructions Recorded Confirmed Gabapentin [Neurontin] 200 mg PO TID 12/27/22 02/22/23 Buspirone HCl 7.5 mg PO DAILY 02/22/23 02/22/23 Sertraline HCl 150 mg PO DAILY 02/22/23 02/22/23 - Allergies Allergies/Adverse Reactions: Allergies Allergy/AdvReac Type Severity Reaction Status Date / Time droperidol Allergy Severe Hives Verified 11/17/23 16:48 Phenothiazines Allergy Severe Hives Verified 11/17/23 16:48 Serotonin 5HT-3 Antagonists Allergy Severe Hives Verified 11/17/23 16:48 - Social History Does the pt smoke?: Yes Smoking Status: Current every day smoker Does the pt drink ETOH?: Yes Does the pt have substance abuse?: No - Immunizations Immunizations are current?: Yes - POLST Patient has POLST: No PD ED PE NORMAL - Extremities Extremities: No deformity, Other (Soft tissue swelling and bruising of the right ankle spreading medially over her talus. Ankle ligaments are stable. She is distally neurovascular intact. No bony tenderness.) - Neuro Neuro: No motor deficit, No sensory deficit Results - Vitals Vitals: Vital Signs - 24 hr 11/17/23 16:48 Temperature 36.7 C Heart Rate 90 Respiratory 16 Rate Blood Pressure 133/80 H O2 Saturation 100 Oxygen O2 Source Room air PD Medical Decision Making - ED course ED course: Benign exam consistent with contusion versus mild sprain. X-rays are negative for fracture. Low suspicion for occult bony injury. Plan treat as contusion ice ibuprofen rest. Departure - Departure Disposition: 01 Home, Self Care Clinical Impression: Contusion of right ankle Qualifiers: Encounter type: initial encounter Qualified Code(s): S90.01XA - Contusion of right ankle, initial encounter Condition: Good Instructions: ED Contusion Foot Ch Forms: PCP List
--- NOTE | 2023-11-17 17:53 | XRAY Report ---
PROCEDURE: Ankle 3+V RT INDICATIONS: R ankle injury TECHNIQUE: 3 views of the ankle were acquired. COMPARISON: None. FINDINGS: Bones: No acute fractures or dislocations. Ankle mortise is normally aligned. No suspicious bony l esions. Soft tissues: No tibiotalar joint effusion. Achilles tendon appears normal. IMPRESSION: No acute osseous abnormality. If there is clinical concern or persistent symptoms, additional imaging such as repeat radiographs or advanced imaging (e.g. CT, MRI) may be helpful for further evaluation. Reviewed by: Shashi Parks MD on 11/17/2023 5:52 PM PDT Approved by: Shashi Parks MD on 11/17/2023 5:52 PM PDT Station ID: [id number]
== END 2023-11-17 18:32 | disposition home or self-care (01) ==
LOC: ED 16:41
DX: S90.01XA Contusion of right ankle, initial encounter (principal); W22.03XA Walked into furniture, initial encounter; Y92.003 Bedroom of unspecified non-institutional (private) residence as the place of occurrence of the external cause; F17.200 Nicotine dependence, unspecified, uncomplicated
CPT/HCPCS: 99283

== ENCOUNTER 2024-01-11 20:05 | Emergency (ER) | payer MEDICAID ==
[2024-01-11 20:37] LABS: BILIRUBIN,URINE NEGATIVE (NEGATIVE); GLUCOSE, URINE (UA) NEGATIVE (NEGATIVE); KETONES,URINE (UA) NEGATIVE (NEGATIVE); LEUKOCYTE ESTERASE, URINE NEGATIVE (NEGATIVE); NITRITE,URINE NEGATIVE (NEGATIVE); OCCULT BLOOD,URINE NEGATIVE (NEGATIVE); PROTEIN,URINE NEGATIVE (NEGATIVE); UROBILINOGEN,URINE 0.2 (NORMAL) E.U./dL (NORMAL)
[2024-01-11 20:38] LABS: CLARITY,URINE CLEAR (CLEAR)
[2024-01-11 20:39] LABS: HCG UR QUAL NEGATIVE
[2024-01-11 20:51] LABS: BASOPHILS % (AUTO) 0.6 %; EOSINOPHILS # (AUTO) 0.2 10^3/uL (0.0-0.7); HCT - HEMATOCRIT 37.1 % (37.0-47.0); LYMPHOCYTES # (AUTO) 2.3 10^3/uL (1.5-3.5); MEAN CORPUSCULAR HEMOGLOBIN 30.4 pg (27.0-31.0); MEAN CORPUSCULAR HGB CONC 32.3 g/dL (32.0-36.0); MEAN CORPUSCULAR VOLUME 93.9 fL (81.0-99.0); MEAN PLATELET VOLUME 9.8 fL (7.9-10.8); MONOCYTES # (AUTO) 0.5 10^3/uL (0.0-1.0); MONOCYTES % (AUTO) 7.2 %; NEUTROPHILS # (AUTO) 3.6 10^3/uL (1.5-6.6); NEUTROPHILS % (AUTO) 53.9 %; PLT - PLATELET COUNT 295 10^3/uL (130-450); RED BLOOD COUNT 3.95 10^6/uL (4.20-5.40); RED CELL DISTRIBUTION WIDTH 12.6 % (12.0-15.0); WHITE BLOOD COUNT 6.6 x10^3/uL (4.8-10.8)
[2024-01-11 21:05] LABS: ALBUMIN 4.5 g/dL (3.2-5.5); ALBUMIN/GLOBULIN RATIO 2.4 (1.0-2.2); BILIRUBIN,TOTAL 0.3 mg/dL (0.2-1.0); CALCIUM 9.8 mg/dL (8.5-10.3); CREATININE 0.9 mg/dL (0.6-1.3); POTASSIUM 3.9 mmol/L (3.5-4.5); TOTAL PROTEIN 6.4 g/dL (6.4-8.9)
[2024-01-11 21:06] LABS: BACTERIA,URINE Rare /HPF (None Seen); RBC,URINE None Seen /HPF (0-5); SQUAMOUS EPITHELIAL CELL,UR FEW Squamous (<= Few); WBC,URINE 0-3 /HPF (0-5)
--- NOTE | 2024-01-12 00:14 | Ultrasound Report ---
PROCEDURE: Pelvic w/Transvag+Doppler Comp INDICATIONS: pelvic pain, R TECHNIQUE: Real-time scanning was performed of the pelvic organs, with image documentation. Additional endovagi nal scanning was necessary due to incomplete visualization of the adnexal and endometrial structures by transabdominal scanning. Doppler interrogation was performed of the ovaries bilaterally. COMPARISON: Pelvic ultrasound 03/07/2023.. FINDINGS: Uterus: Uterus is retroverted and normal in size at 4.3 x 5.2 x 7.9 cm. The myometrium is mildly he terogeneous. The endometrium measures 5.4 mm in combined thickness. Ovaries: The right ovary measures 2.5 x 1.4 x 2.2 cm, with a calculated ovarian volume of 3.9 cc. T he left ovary measures 3.1 x 2.6 x 3.6 cm, with a calculated ovarian volume of 15.3 cc. Appropriate blood flow to the ovaries with Doppler interrogation. Less than 12 follicles can be seen in each ov [place]. No adnexal masses are seen. No cystic lesions measuring greater than 3 cm. Other: No pathologic free abdominal or pelvic fluid. IMPRESSION: Source of pelvic pain is not identified. No evidence of ovarian torsion bilaterally. Reviewed by: Mauricio Manning MD on 01/12/2024 12:12 AM PDT Approved by: Mauricio Manning MD on 01/12/2024 12:12 AM PDT Station ID: [id number]
--- NOTE | 2024-01-12 01:04 | ED Physician Documentation ---
PD HPI ABD PAIN - Stated complaint Stated Complaint: ABD PX - Chief complaint Chief Complaint: Abd Pain - History obtained from History obtained from: Patient - Additional information Additional information: Patient comes to the emergency department chief complaint of low abdominal pain for the last few hours. She states it came on fairly suddenly and that it is spreading across her low abdomen. She denies any other symptoms. No vaginal bleeding. No dysuria. No fevers or chills. No nausea or vomiting. The patient states she is otherwise fairly healthy. She has a history of suspected endometriosis and is still in the process of being worked up for this. She has had ovarian cysts previously and is wondering if this is causing pain. No other complaints at this time. No change in bowel movements. PD PAST MEDICAL HISTORY - Past Medical History Past Medical History: Yes Cardiovascular: None Respiratory: None Neuro: None Endocrine/Autoimmune: None GI: None TREKKING GUIDE: None : None, Other HEENT: None Psych: Depression, Anxiety Musculoskeletal: None Derm: None - Past Surgical History Past Surgical History: Yes General: Appendectomy /TREKKING GUIDE: section - Present Medications Home Medications: Ambulatory Orders Medication Instructions Recorded Confirmed Gabapentin [Neurontin] 200 mg PO TID 12/27/22 02/22/23 Buspirone HCl 7.5 mg PO DAILY 02/22/23 02/22/23 Sertraline HCl 150 mg PO DAILY 02/22/23 02/22/23 HYDROcod/ACETAM 5/325 [[place] 5/325] 1 - 2 tablet PO Q6H PRN #8 tablet 11/17/23 - Allergies Allergies/Adverse Reactions: Allergies Allergy/AdvReac Type Severity Reaction Status Date / Time droperidol Allergy Severe Hives Verified 01/11/24 20:21 Phenothiazines Allergy Severe Hives Verified 01/11/24 20:21 Serotonin 5HT-3 Antagonists Allergy Severe Hives Verified 01/11/24 20:21 - Social History Does the pt smoke?: Yes Smoking Status: Current every day smoker Does the pt drink ETOH?: Yes Does the pt have substance abuse?: No - Immunizations Immunizations are current?: Yes - POLST Patient has POLST: No PD ED PE NORMAL - Vitals Vital signs reviewed: Yes - General General: Alert and oriented X 3, No acute distress, Well developed/nourished - HEENT HEENT: Atraumatic, EOMI, Moist mucous membranes - Neck Neck: Supple, no meningeal sign - Cardiac Cardiac: RRR, No murmur, Strong equal pulses - Respiratory Respiratory: No respiratory distress, Clear bilaterally - Abdomen Abdomen: Soft, Non distended, Other (Mild diffuse tenderness across low abdomen, no rebound or guarding.) - Derm Derm: Normal color, Warm and dry, No rash - Extremities Extremities: No deformity, No edema - Neuro Neuro: Alert and oriented X 3 - Psych Psych: Normal mood, Normal affect Results - Vitals Vitals: Oxygen O2 Source Room air - Labs Labs: Laboratory Tests 01/11/24 01/11/24 01/11/24 20:30 20:42 20:42 WBC 6.6 RBC 3.95 L Hgb 12.0 Hct 37.1 MCV 93.9 MCH 30.4 MCHC 32.3 RDW 12.6 Plt Count 295 MPV 9.8 Neut # (Auto) 3.6 Lymph # (Auto) 2.3 Ed[place]ds # (Auto) 0.5 Eos # (Auto) 0.2 Baso # (Auto) 0.0 Absolute Nucleated RBC 0.00 Nucleated RBC % 0.0 Sodium 138 Potassium 3.9 Chloride 107 Carbon Dioxide 28 Anion Gap 3.0 L BUN 8 Creatinine 0.9 Estimated GFR (MDRD) 74 L Glucose 99 Calcium 9.8 Total Bilirubin 0.3 AST 11 ALT 8 L Alkaline Phosphatase 43 Total Protein 6.4 Albumin 4.5 Globulin 1.9 L Albumin/Globulin Ratio 2.4 H Urine Color YELLOW Urine Clarity CLEAR Urine pH 6.0 Ur Specific [place] <=1.005 Urine Protein NEGATIVE Urine Glucose (UA) NEGATIVE Urine Ketones NEGATIVE Urine Occult Blood NEGATIVE Urine Nitrite NEGATIVE Urine Bilirubin NEGATIVE Urine Urobilinogen 0.2 (NORMAL) Ur Leukocyte Esterase NEGATIVE Urine RBC None Seen Urine WBC 0-3 Ur Squamous Epith Cells FEW Squamous Urine Bacteria Rare Urine Culture Comments NOT INDICATED Urine HCG, Qual NEGATIVE - Rads (name of study) Pelvic ultrasound Relevant Findings:: Final report received, See rad report (No torsion, no obvious rupture. Otherwise unremarkable.) PD Medical Decision Making - ED course Complexity details: reviewed results, re-evaluated patient, considered d ifferential, d/w patient ED course: The patient was worked up with labs and urinalysis, which were unremarkable. She was then evaluated with ultrasound which showed a small left ovarian cyst per preliminary result, but otherwise unremarkable. The patient's examination was fairly benign with only diffuse lower abdominal tenderness to a mild degree. The patient was treated symptomatically and feeling better. I discussed with her the need for follow-up. At this point in time, given the nonfocal exam, as well as the otherwise negative workup, I do not feel CT scan is indicated at this time. We have discussed the usual indications for return. Departure - Departure Disposition: 01 Home, Self Care Clinical Impression: Abdominal pain Qualifiers: Abdominal location: lower abdomen, unspecified Qualified Code(s): R10.30 - L ower abdominal pain, unspecified Ovarian cyst Qualifiers: Laterality: left Qualified Code(s): N83.202 - Unspecified ovarian cyst, left side Condition: Stable Instructions: ED Abdominal Pain Female Non-Specific Abdominal Pain Comments: Your labs, urinalysis, and ultrasound all look good for the most part. You do have a left-sided ovarian cyst which may be causing your pain. This may also be due to the as suspected endometriosis. You should call your technical solution architect office first thing in the morning and let them know that you are having another flareup and see what the next step is that they would like to take. You have been given sedating medication tonight. Please do not drive for the next 8 hours. Forms: PCP List Discharge Date/Time: 01/12/24 01:19
[2024-01-12] MEDS: HYDROcod/ACETAM 5/325 MG TABLET PO STA (01:16)
[2024-01-12] MEDS: IBUPROFEN 800 MG TABLET PO STA (01:16)
[2024-01-12 01:20] VITALS: BP 128/73; O2SAT 99
== END 2024-01-12 01:19 | disposition home or self-care (01) ==
LOC: ED 20:05
DX: R10.30 Lower abdominal pain, unspecified (principal); F17.200 Nicotine dependence, unspecified, uncomplicated; Z79.899 Other long term (current) drug therapy
CPT/HCPCS: 36415; 76830; 76856; 80053; 81001; 81025; 85025; 93975; 99283; 99284; A9270; 87086